=== PATIENT | female | born 1970 | race Caucasian/White ===

== ENCOUNTER → 2016-10-04 | Outpatient (CLI) | payer BC ==
--- NOTE | 2016-10-04 10:48 | MM ---
Reason for exam: additional evaluation requested from prior study. Last mammogram was performed 1 year and 8 months ago. History: Patient has history of other cancer at age 30. Physical Findings: Nurse did not find any significant physical abnormalities on exam. MG Diagnostic Mammo w CAD SANJAY Bilateral CC and MLO view(s) were taken. Prior study comparison: January 31, 2015, bilateral MG diagnostic mammo w CAD SANJAY. November 23, 2011, bilateral digital screening mammo w/CAD. The breast tissue is heterogeneously dense. This may lower the sensitivity of mammography. Finding: There are diffuse/scattered calcifications. Nodular density upper inner right breast is less conspicious. 6 month follow up recommended. These results were verbally communicated with the patient and result sheet given to the patient on 10/04/16. ASSESSMENT: Probably benign, BI-RAD 3 RECOMMENDATION: Follow-up diagnostic mammogram of the right breast in 6 months.
== END | disposition home or self-care (01) ==
LOC: RADMAMWWP 08:21
PROVIDERS: ATTEND Obstetrics & Gynecology
DX: R92.8 Other abnormal and inconclusive findings on diagnostic imaging of breast (principal)

== ENCOUNTER → 2017-04-30 | Outpatient (CLI) | payer BC ==
--- NOTE | 2017-05-01 08:56 | MM ---
Reason for exam: follow-up at short interval from prior study. Last mammogram was performed 7 months ago. History: Patient has history of other cancer at age 30. Physical Findings: Nurse did not find any significant physical abnormalities on exam. MG Diagnostic Mammo RT w CAD CC and MLO view(s) were taken of the right breast. Prior study comparison: October 04, 2016, bilateral MG diagnostic mammo w CAD SANJAY. January 31, 2015, bilateral MG diagnostic mammo w CAD SANJAY. The breast tissue is heterogeneously dense. This may lower the sensitivity of mammography. There is no discrete abnormality, previous nodule not identified. No significant new findings when compared with previous films. These results were verbally communicated with the patient and result sheet given to the patient on 04/30/17. ASSESSMENT: Benign, BI-RAD 2 RECOMMENDATION: Routine screening mammogram of both breasts in 6 months. Back on schedule.
== END | disposition home or self-care (01) ==
LOC: RADMAMWWP 09:09
PROVIDERS: ATTEND Obstetrics & Gynecology
DX: R92.8 Other abnormal and inconclusive findings on diagnostic imaging of breast (principal)

== ENCOUNTER → 2018-02-27 | Outpatient (CLI) | payer BC ==
--- NOTE | 2018-03-03 10:01 | MM ---
Reason for exam: screening (asymptomatic). Last mammogram was performed 10 months ago. History: Patient is postmenopausal and has history of other cancer at age 30. Physical Findings: A clinical breast exam by your physician is recommended on an annual basis and results should be correlated with mammographic findings. MG 3D Screening Mammo W/Cad Bilateral CC and MLO view(s) were taken. Prior study comparison: April 30, 2017, right breast MG diagnostic mammo RT w CAD. October 04, 2016, bilateral MG diagnostic mammo w CAD SANJAY. The breast tissue is heterogeneously dense. This may lower the sensitivity of mammography. Benign appearing diffuse bilateral calcifications. No suspicious abnormality. No significant changes when compared with prior studies. ASSESSMENT: Benign, BI-RAD 2 RECOMMENDATION: Routine screening mammogram of both breasts in 1 year.
== END | disposition home or self-care (01) ==
LOC: RADMAMWWP 08:06
PROVIDERS: ATTEND Obstetrics & Gynecology
DX: Z12.31 Encounter for screening mammogram for malignant neoplasm of breast (principal)
CPT/HCPCS: 77063; 77067

== ENCOUNTER 2018-04-07 19:37 | Emergency (ER) | payer BC ==
[2018-04-07 19:42] VITALS: RESP 18
[2018-04-07] MEDS ORDERED: FAMOTIDINE 20 MG/2 ML VIAL IV STA (20:48)
[2018-04-07] MEDS ORDERED: methylPREDNISolone SOD SUCCI 125 MG/2 ML VIAL IV STA (20:48)
--- NOTE | 2018-04-07 20:50 | ED ---
General Adult HPI - General Chief complaint: Allergic Reaction Stated complaint: allergic reaction Time Seen by Provider: 04/07/18 19:40 Source: EMS, RN notes reviewed Mode of arrival: EMS Limitations: no limitations - History of Present Illness Initial comments: This is a 47-year-old female presents emergency Department complaining that she was stung by 4 bees after she was done she became numb all over and was itching sites of the sting. Patient also states she became short of breath and when the ambulance arrived they gave her epinephrine which did seem to help. Patient states she is breathing better currently. Patient states her skin still itches. Patient denies any chest pain or palpitations. Patient states this has happened in the past. Patient states she does not have any EpiPen is because of the cost. - Related Data Home Medications Medication Instructions Recorded Confirmed Citalopram Hydrobromide [CeleXA] 20 mg PO DAILY 04/07/18 04/07/18 Lisinopril [Prinivil] 10 mg PO DAILY 04/07/18 04/07/18 Previous Rx's Medication Instructions Recorded EPINEPHrine (Auto Inject) [Epipen] 0.3 mg IM ONCE PRN #2 syringe 04/07/18 predniSONE 40 mg PO DAILY #8 tab 04/07/18 Allergies Allergy/AdvReac Type Severity Reaction Status Date / Time No Known Allergies Allergy Verified 04/07/18 20:50 Review of Systems ROS Statement: Those systems with pertinent positive or pertinent negative responses have been documented in the HPI. ROS Other: All systems not noted in ROS Statement are negative. Past Medical History Past Medical History: Cancer Additional Past Medical History / Comment(s): cervical cancer 1999- uterus scraped, currently evaluated for MS History of Any Multi-Drug Resistant Organisms: None Reported Past Surgical History: No Surgical Hx Reported Additional Past Surgical History / Comment(s): L wrist cyst removed 2005 Past Anesthesia/Blood Transfusion Reactions: No Reported Reaction Past Psychological History: No Psychological Hx Reported Smoking Status: Current every day smoker Past Alcohol Use History: Daily Past Drug Use History: Marijuana - Past Family History Mother Family Medical History: No Reported History General Exam - General Exam Comments Initial Comments: GENERAL: Patient is well-developed and well-nourished. Patient is nontoxic and well- hydrated and is in mild distress. ENT: Neck is soft and supple. No significant lymphadenopathy is noted. Oropharynx is clear. Moist mucous membranes. Neck has full range of motion without eliciting any pain. EYES: The sclera were anicteric and conjunctiva were pink and moist. Extraocular movements were intact and pupils were equal round and reactive to light. Eyelids were unremarkable. PULMONARY: Unlabored respirations. Good breath sounds bilaterally. No audible rales rhonchi or wheezing was noted. CARDIOVASCULAR: There is a regular rate and rhythm without any murmurs gallops or rubs. ABDOMEN: Soft and nontender with normal bowel sounds. No palpable organomegaly was noted. There is no palpable pulsatile mass. SKIN: Left forearm is swollen where the patient was stung. Patient also was stung on the inner left thigh but there is no real redness or swelling NEUROLOGIC: Patient is alert and oriented x3. Cranial nerves II through XII are grossly intact. Motor and sensory are also intact. Normal speech, volume and content. Symmetrical smile. MUSCULOSKELETAL: Normal extremities with adequate strength and full range of motion. No lower extremity swelling or edema. No calf tenderness. LYMPHATICS: No significant lymphadenopathy is noted PSYCHIATRIC: Normal psychiatric evaluation. Limitations: no limitations Course Vital Signs 04/07/18 19:38 Temperature 97.8 F Pulse Rate 84 Respiratory 18 Rate Blood Pressure 139/62 O2 Sat by Pulse 97 Oximetry Medical Decision Making - Medical Decision Making Patient received epinephrine in route. Patient received Solu-Medrol and Pepcid here she already took Benadryl at home orally. After patient received his medications are reevaluated she's having no difficulty no wheezing and her itching it subsided almost entirely. Patient should take Benadryl when necessary for itching. Patient denies any difficulty breathing patient should return to the emergency department immediately. Disposition Clinical Impression: Anaphylaxis Disposition: HOME SELF-CARE Condition: Good Instructions: Anaphylaxis (ED) Prescriptions: EPINEPHrine (Auto Inject) [Epipen] 0.3 mg IM ONCE PRN #2 syringe PRN Reason: Difficulty breathing predniSONE 40 mg PO DAILY #8 tab Is patient prescribed a controlled substance at d/c from ED?: No Referrals: Malik Amezcua DO [Primary Care Provider] - 1-2 days Time of Disposition: 21:46
[2018-04-07 22:10] VITALS: BP 132/62; PULSE 77; TEMP 97.6
== END 2018-04-07 22:10 | disposition home or self-care (01) ==
LOC: EC 19:37
DX: T78.2XXA Anaphylactic shock, unspecified, initial encounter (principal); Z85.41 Personal history of malignant neoplasm of cervix uteri; F17.200 Nicotine dependence, unspecified, uncomplicated; Z79.899 Other long term (current) drug therapy
CPT/HCPCS: 99284; 96374; 96375; J2930

== ENCOUNTER → 2020-03-16 | Outpatient (CLI) | payer BC, OTHER | END | disposition home or self-care (01) | LOC: LABWHC1 11:55 | PROVIDERS: ATTEND Family Medicine | DX: R06.00 Dyspnea, unspecified (principal) ==

== ENCOUNTER → 2021-01-12 | Outpatient (CLI) | payer OTHER ==
--- NOTE | 2021-01-16 14:05 | MM ---
Reason for exam: screening (asymptomatic). Last mammogram was performed 2 years and 10 months ago. History: Patient is postmenopausal and has history of other cancer at age 30. Physical Findings: A clinical breast exam by your physician is recommended on an annual basis and results should be correlated with mammographic findings. MG Screening Mammo w CAD Bilateral CC and MLO view(s) were taken. Prior study comparison: February 27, 2018, bilateral MG 3d screening mammo w/cad. April 30, 2017, right breast MG diagnostic mammo RT w CAD. The breast tissue is heterogeneously dense. This may lower the sensitivity of mammography. Diffuse and regional punctate calcifications are unchanged. No significant changes when compared with prior studies. ASSESSMENT: Benign, BI-RAD 2 RECOMMENDATION: Routine screening mammogram of both breasts in 1 year. Patient should continue monthly self breast exams. A negative report should not preclude additional follow up of suspicious palpable abnormalities.
== END | disposition home or self-care (01) ==
LOC: RADMAMWWP 15:56
PROVIDERS: ATTEND Obstetrics & Gynecology
DX: Z12.31 Encounter for screening mammogram for malignant neoplasm of breast (principal); Z78.0 Asymptomatic menopausal state
CPT/HCPCS: 77067

== ENCOUNTER 2021-02-16 16:10 | Emergency (ER) | payer OTHER ==
[2021-02-16 16:19] VITALS: BP 150/86; TEMP 97.8
[2021-02-16] MEDS ORDERED: LIDOCAINE 1% INJ 10MG/ML (20 ML MDV) SQ ONE (18:00)
[2021-02-16] MEDS ORDERED: DIPH,PERTUS(ACELL)TETVAC-LF 0.5 ML VIAL IM ONE (18:09)
--- NOTE | 2021-02-16 18:53 | ED ---
Wound/Laceration HPI - General Chief Complaint: Wound/Laceration Stated Complaint: Finger Laceration Time Seen by Provider: 02/16/21 17:55 Source: patient Mode of arrival: ambulatory Limitations: no limitations - History of Present Illness Initial Comments: 50-year-old female presents to the emergency department with a chief complaint of laceration. Said this occurred about 4 hours ago prior to arrival. States she punched a glass window and lacerated the palmar aspect of her right index finger. Patient reports tetanus is not up-to-date. Patient reports the pain is exacerbated with palpation to the region. She is not on blood thinners. Reports some bleeding which has since mostly resolved. States she is able to move her finger without any difficulties. - Related Data Home Medications Medication Instructions Recorded Confirmed Lisinopril [Prinivil] 10 mg PO DAILY 04/07/18 04/07/18 RX: Citalopram Hydrobromide 20 mg PO DAILY 04/07/18 04/07/18 [CeleXA] Previous Rx's Medication Instructions Recorded RX: EPINEPHrine (Auto Inject) 0.3 mg IM ONCE PRN #2 syringe 04/07/18 [Epipen] RX: predniSONE [Deltasone] 40 mg PO DAILY #8 tab 04/07/18 Allergies Allergy/AdvReac Type Severity Reaction Status Date / Time No Known Allergies Allergy Verified 02/16/21 16:14 Review of Systems ROS Statement: Those systems with pertinent positive or pertinent negative responses have been documented in the HPI. ROS Other: All systems not noted in ROS Statement are negative. Past Medical History Past Medical History: Cancer Additional Past Medical History / Comment(s): cervical cancer 1999- uterus scraped, currently evaluated for MS History of Any Multi-Drug Resistant Organisms: None Reported Past Surgical History: No Surgical Hx Reported Additional Past Surgical History / Comment(s): L wrist cyst removed 2005 Past Anesthesia/Blood Transfusion Reactions: No Reported Reaction Past Psychological History: Anxiety Smoking Status: Current every day smoker Past Alcohol Use History: Daily Past Drug Use History: Marijuana - Past Family History Mother Family Medical History: No Reported History General Exam Limitations: no limitations General appearance: alert, in no apparent distress Head exam: Present: atraumatic, normocephalic, normal inspection Eye exam: Present: normal appearance, PERRL, EOMI Pupils: Present: normal accommodation ENT exam: Present: normal exam, normal oropharynx, mucous membranes moist, TM's normal bilaterally, normal external ear exam Neck exam: Present: normal inspection, full ROM. Absent: tenderness Respiratory exam: Present: normal lung sounds bilaterally. Absent: respiratory distress, wheezes, rales, rhonchi, stridor, chest wall tenderness, accessory muscle use Cardiovascular Exam: Present: regular rate, normal rhythm, normal heart sounds. Absent: systolic murmur Extremities exam: Present: full ROM, tenderness (Tenderness at lacerated site), normal capillary refill. Absent: normal inspection (Chris laceration on the distal aspect of the right second finger), pedal edema, joint swelling, calf tenderness Back exam: Present: normal inspection, full ROM. Absent: tenderness, CVA tenderness (R), CVA tenderness (L) Neurological exam: Present: alert, oriented X3, normal gait Psychiatric exam: Present: normal affect, normal mood Skin exam: Present: warm, dry, intact, normal color Course Vital Signs 02/16/21 16:15 Temperature 97.8 F Pulse Rate 127 H Respiratory 18 Rate Blood Pressure 150/86 O2 Sat by Pulse 97 Oximetry Procedures - Laceration Laceration #1 Consent Obtained: verbal consent Indication: laceration Site: upper extremity (Right second digit) Size (cm): 2 Description: linear, clean Depth: simple, single layer Sedation/Analgesia: none Anesthetic Used: lidocaine 1% Anesthesia Technique: nerve block (Digital block) Amount (mls): 5 Pre-repair: irrigated extensively, deep structures intact Type of Sutures: nylon Size of Sutures: 4-0 Number of Sutures: 7 Technique: simple, interrupted Patient Tolerated Procedure: well, no complications - Nerve Block Consent Obtained: verbal consent Local Anesthetic Used: Lidocaine 1% Amount of anesthesia used: 5 Side: right Nerve Blocks: digital Procedure Successful: Yes Complications: none Patient Tolerated Procedure: well, no complications Medical Decision Making - Medical Decision Making 50-year-old female presents to the emergency department with a chief complaint laceration. Patient has a laceration distal and right index digit. This was thoroughly irrigated with normal saline and Betadine. Tetanus was updated. Laceration site was repaired with 7 sutures. Patient tolerated procedure well. I did offer x-rays of the finger, she declined.. Digital block performed. Patient vised return for suture removal. Wound care instructions discussed. Case discussed with Dr. Abreu. Disposition Clinical Impression: Laceration Disposition: HOME SELF-CARE Condition: Stable Instructions (If sedation given, give patient instructions): Care For Your Stitches (DC), Laceration (DC) Additional Instructions: Please return to the emergency room in 8-10 days to have sutures removed. Please watch for any signs of infection which may include increased pain, swelling, redness, fever or chills. Please return to emergency room for any signs of infection do occur. Please use clean soap and water over the area to prevent scabbing over your stitches. Please leave wound covered for the first 24-48 hours and then leave wound open to air. Please return to the emergency room for any other concerns. Is patient prescribed a controlled substance at d/c from ED?: No Referrals: Landon Maldonado Jr, DO [Primary Care Provider] - 1-2 days Time of Disposition: 18:53
[2021-02-16 19:14] VITALS: PULSE 95; RESP 16
== END 2021-02-16 19:14 | disposition home or self-care (01) ==
LOC: EC 16:10
DX: S61.210A Laceration without foreign body of right index finger without damage to nail, initial encounter (principal); F41.9 Anxiety disorder, unspecified; F17.200 Nicotine dependence, unspecified, uncomplicated; F12.90 Cannabis use, unspecified, uncomplicated; Z85.41 Personal history of malignant neoplasm of cervix uteri; W25.XXXA Contact with sharp glass, initial encounter
CPT/HCPCS: 90715; 99282; 90471; 12001; J2001

== ENCOUNTER 2021-06-06 13:06 | Emergency (ER) | payer OTHER ==
[2021-06-06 13:13] VITALS: BP 152/76; RESP 20; TEMP 98.1
--- NOTE | 2021-06-06 14:10 | ED ---
Lower Extremity Injury HPI - General Chief Complaint: Extremity Injury, Lower Stated Complaint: lt foot injury Time Seen by Provider: 06/06/21 13:30 Source: patient Mode of arrival: wheelchair Limitations: physical limitation - History of Present Illness Initial Comments: Patient is a 50-year-old female presenting to the emergency Department with complaints of left foot pain over the past 2 days. She states she's had fractures and her left foot in the past about 5 years ago. She woke up in the low night 2 nights ago, went to step down on her left foot and felt a crack and a pop. She's been having swelling and increased pain ever since then. She describes it as on the lateral aspect of her left foot, does shoot up the back of her leg sometimes. She denies any further complaints at this time. - Related Data Home Medications Medication Instructions Recorded Confirmed Citalopram Hydrobromide [CeleXA] 20 mg PO DAILY 04/07/18 04/07/18 Lisinopril [Prinivil] 10 mg PO DAILY 04/07/18 04/07/18 Previous Rx's Medication Instructions Recorded EPINEPHrine (Auto Inject) [Epipen] 0.3 mg IM ONCE PRN #2 syringe 04/07/18 predniSONE [Deltasone] 40 mg PO DAILY #8 tab 04/07/18 Allergies Allergy/AdvReac Type Severity Reaction Status Date / Time No Known Allergies Allergy Verified 02/16/21 16:14 Review of Systems ROS Statement: Those systems with pertinent positive or pertinent negative responses have been documented in the HPI. ROS Other: All systems not noted in ROS Statement are negative. Past Medical History Past Medical History: Cancer Additional Past Medical History / Comment(s): cervical cancer 1999- uterus scraped, currently evaluated for MS History of Any Multi-Drug Resistant Organisms: None Reported Past Surgical History: No Surgical Hx Reported Additional Past Surgical History / Comment(s): L wrist cyst removed 2005 Past Anesthesia/Blood Transfusion Reactions: No Reported Reaction Past Psychological History: Anxiety Smoking Status: Current every day smoker Past Alcohol Use History: Daily Past Drug Use History: Marijuana - Past Family History Mother Family Medical History: No Reported History General Exam - General Exam Comments Initial Comments: GENERAL: Patient is well-developed and well-nourished. Patient is nontoxic and in no acute distress. HEAD: Atraumatic, normocephalic. EYES: Pupils equal round and reactive to light, extraocular movements intact, sclera anicteric, conjunctiva are normal. Eyelids were unremarkable. ENT: Moist mucous membranes. NECK: Normal range of motion, supple without lymphadenopathy or JVD. LUNGS: Unlabored respirations. Breath sounds clear to auscultation bilaterally and equal. No wheezes rales or rhonchi. HEART: Regular rate and rhythm without murmurs, rubs or gallops. MUSCULOSKELETAL: Patient is tender along the lateral aspect of her left foot, she does have some mild to moderate swelling present, no obvious deformity or erythema. No clubbing or cyanosis. NEUROLOGICAL: Patient is alert and oriented x 3. SKIN: Warm, Dry, normal turgor, no rashes or lesions noted. Limitations: physical limitation Course Vital Signs 06/06/21 13:09 Temperature 98.1 F Pulse Rate 106 H Respiratory 20 Rate Blood Pressure 152/76 O2 Sat by Pulse 98 Oximetry Medical Decision Making - Medical Decision Making Patient is a 50-year-old female here with left foot pain after she stepped on it 2 nights ago. She does have history of previous left foot fractures, last was about 5 years ago. X-rays today show no acute fractures dislocations. I discussed with patient this is most likely a sprain. Recommended Forrest wrap for compression, ice and ibuprofen for any discomfort. If symptoms persist she can follow up with her doctor. She is agreeable to this and is stable for discharge. Disposition Clinical Impression: Left foot pain Disposition: HOME SELF-CARE Condition: Stable Instructions (If sedation given, give patient instructions): Foot Sprain (ED) Additional Instructions: Please return to the Emergency Department if symptoms worsen or any other concerns. Recommended Forrest wrap for support, ice, ibuprofen. If symptoms persist without improvement, follow up with your doctor. Is patient prescribed a controlled substance at d/c from ED?: No Referrals: Landon Maldonado Jr, [Primary Care Provider] - 1-2 days Time of Disposition: 14:52
--- NOTE | 2021-06-06 14:30 | XR ---
EXAMINATION TYPE: XR foot complete LT DATE OF EXAM: 06/06/2021 COMPARISON: None HISTORY: Pain x2 days, swelling TECHNIQUE: 3 view left foot FINDINGS: Joint spaces are preserved. Alignment is normal. No acute fracture or dislocation is eviden t. Soft tissues are normal. Achilles tendon calcaneal heel spur is present. Follow-up studies can be performed 7-10 days from acute trauma for continued pain. IMPRESSION: 1. No acute osseous abnormality left foot
[2021-06-06 15:02] VITALS: PULSE 88
== END 2021-06-06 15:02 | disposition home or self-care (01) ==
LOC: EC 13:06
DX: M79.672 Pain in left foot (principal); F41.9 Anxiety disorder, unspecified; F17.200 Nicotine dependence, unspecified, uncomplicated; F12.90 Cannabis use, unspecified, uncomplicated; Z79.899 Other long term (current) drug therapy
CPT/HCPCS: 99283

== ENCOUNTER → 2021-06-20 | Outpatient (CLI) | payer OTHER ==
--- NOTE | 2021-06-20 14:04 | CT ---
EXAMINATION TYPE: CT sinus wo con DATE OF EXAM: 06/20/2021 COMPARISON: CT brain December 31, 2015 HISTORY: sinusitis chronic per order. CT DLP: 638 mGycm. Automated Exposure Control for Dose Reduction was Utilized. TECHNIQUE: CT scan of the sinuses is performed without contrast, axial images are obtained, coronal r eformatted images are also reviewed. FINDINGS: Completely opacified left maxillary sinus on current study has abnormal tissue bulging into the nasal cavity axial image 54. Anterolateral wall shows sclerosis and thickening versus opposite r ight side . No bony destruction. Mild mucosal thickening inferior right maxillary sinus remains pres ent. Mild to minimal mucosal thickening anterior sphenoid sinuses bilaterally on current study. Mild to mo derate mucosal thickening posterior inferior aspect bilateral frontal sinuses aren't current study. M [id number] mucosal thickening involving anterior ethmoid sinuses bilaterally on current study. The ostiomeatal complex is patent on the right coronal image 37 and occluded on the left due to antra l left maxillary sinus with heterogeneous tissue extension. Nasal septum remains deviated to right of midline similar to prior. Visualized portion of mastoid air cells show no abnormal opacification. The globes are intact bilate rally. Visualized portion of brain parenchyma shows diffuse cerebral atrophy and chronic small vesse l ischemic change. IMPRESSION: Chronic paranasal sinus disease as detailed above. Left maxillary sinus findings signific antly progressed from 2016 study. Acute on chronic process cannot be excluded. Consider surgical samp ling to further evaluate.
== END | disposition home or self-care (01) ==
LOC: RADCTMAIN 13:27
PROVIDERS: ATTEND Otolaryngology
DX: J32.0 Chronic maxillary sinusitis (principal); J32.1 Chronic frontal sinusitis; J32.2 Chronic ethmoidal sinusitis; J32.3 Chronic sphenoidal sinusitis
CPT/HCPCS: 70486

== ENCOUNTER → 2021-07-13 | Outpatient (CLI) | payer OTHER ==
--- NOTE | 2021-07-13 15:29 | NM ---
EXAMINATION TYPE: NM bone/joint limited DATE OF EXAM: 07/13/2021 COMPARISON: Left foot x-ray June 06, 2021 HISTORY: Injury 6 weeks ago with persistent pain. History of cervical cancer. TECHNIQUE: After the intravenous administration of 21.8 mCi Tc 99m MDP. Images acquired 3 hours pos t injection. Multiple views of bilateral ankles and feet are submitted. Whole body images in anterio r and posterior projection also acquired. Findings: There is no abnormal uptake within the visualized osseous structures to suggest metastatic disease to the bone. Focus of increased uptake lower pole level right kidney of uncertain etiology possible dil ated calyx. Mild uptake bilateral knee joints presumed product of degenerative change. Dedicated images of the bilateral ankles and feet show increased radiotracer uptake lateral forefoot and hindfoot level corresponding to nondisplaced acute or now subacute comminuted fracture through th e cuboid bone now seen in retrospect on comparison plain films. IMPRESSION: As above.
== END | disposition home or self-care (01) ==
LOC: RADNMMAIN 11:02
PROVIDERS: ATTEND Family Medicine
DX: Z85.41 Personal history of malignant neoplasm of cervix uteri (principal)
CPT/HCPCS: 78300; A9503

== ENCOUNTER → 2022-02-09 | Outpatient (CLI) | payer OTHER ==
--- NOTE | 2022-02-10 03:22 | MR ---
EXAMINATION TYPE: MR lumbar spine wo/w con DATE OF EXAM: 02/09/2022 COMPARISON: None HISTORY: Low back pain into mike lower extremities CONTRAST: Standard multiplanar, multisequence MRI departmental protocol images were obtained without contrast a nd with 5 mL intravenous Gadavist gadolinium contrast. The lumbar vertebrae have normal alignment. Disc spaces are fairly normal. No compression fracture. N o evidence of any significant posterior lumbar disc herniation. There is developmentally adequate spi nal canal. The neural foramina are fairly well maintained. There is no lumbar paraspinal mass. Sacroi liac joints are intact. No evidence of a mass. There is mild anterior disc herniation at L3-4. There is mild right-sided lateral posterior L3-4 disc bulging without significant impingement on the neural foramen. IMPRESSION: Posterior lateral right side L3-4 disc bulge. No spinal stenosis. No fracture.
== END | disposition home or self-care (01) ==
LOC: RADMRIMAIN 09:49
PROVIDERS: ATTEND Physical Medicine & Rehabilitation
DX: M51.26 Other intervertebral disc displacement, lumbar region (principal)
CPT/HCPCS: 72158; A9585

== ENCOUNTER → 2023-04-25 | Outpatient (CLI) | payer OTHER ==
[2023-04-25 09:09] VITALS: BP 166/90; PULSE 87; RESP 15
--- NOTE | 2023-04-25 13:24 | P.PAINPG ---
PQRS Measure Charge Sheet Comment: HISTORY OF PRESENT ILLNESS: 52 yr old female as a referral from Dr Salazar presents today w severe and chronic LBP secondary to DDD, spondylosis and facet arthropathy without myelopathy for evaluation. Pt states pain level is provoked at 6/10 in intensity, constant, localized in the lower lumbar spine, sharp in character w shooting pain towards the BLEs. Pain is provoked by over activity. Pain is alleviated by heat, medications (Tyl, Ibu), topical, chiropractic treatments in 2020, repositioning and rest. Oswestry axial pain score at 24. PMH: OA, Cervical CA (1999), Anxiety PSH: L Wrist Cystectomy (2005) SH: Daily tobacco use, No ETOH abuse, Cannabis use FH: Mo- No Reported History All: See list Meds: See list REVIEW OF ORGAN SYSTEMS: CONSTITUTIONAL: No fevers or chills. No recent weight loss. NEUROLOGICAL: + numbness and tingling along the distal e xtremities. No seizure disorders or headaches. MUSCULOSKELETAL: + pain PSYCHIATRIC: Denies current depression or suicidal thoughts. Physical Examinations : Constitutional : Cooperative , not in acute distress . Neurologic : Cranial nerve II to XII intact. No focal neurological deficits. Psychiatric : alert & oriented x 3. Matching mood & appropriate affect. Judgment & insight intact. Musculoskeletal : Cervical Spine Motor strength in the deltoid and biceps: Normal right side. Normal Left side Motor strength biceps and the wrist extensors: Normal right side . Normal left side Motor strength in the triceps muscle: Normal right side. Normal left side Deep tendon reflexes: Normal at the biceps. Normal at Brachioradialis. Normal at triceps Vertebral body tenderness to deep palpation over Cervical facet loading test: positive bilaterally Spurling test: positive bilaterally Neck distraction test: positive bilaterally Minerva sign: positive bilaterally Lumbar spine Motor strength lower extremities ,thigh and legs 5/5 Right side , 5/5 Left side Deep tendon reflexes : Normal Knee Jerk. Normal Ankle Jerk Vertebral body tenderness over Iniguez Test positive Lumbar facet Loading Test: positive Right / positive Left Range of motion of the lumbar spine Flexion 30 degrees, extension 10 degrees Straight Leg Raise test: Left/ Right positive at degree Starr test: positive right / positive left. Severe tenderness over the Sacroiliac joint on the Right / Left sides Gaenslen test: positive bilaterally Seated flexion test: positive bilaterally. Sacral spine : Severe tenderness over the Sacroiliac joint: right side / left side Range of motion: Flexion of the lumbar spine <60 degrees Range of motion: Extension of the lumbar spine <20 degrees Gaenslen's Test positive Albert's Test positive Starr test: positive right side / left side Thigh Thrust Test Sacral Thrust Test Imaging: MRI non contrast of the lumbar spine from January 2022 reviewed Assessment/ Plan : Lumbar DDD Recommendation of PT x 6 wks re: M51.36 January follow up in 6 wks for a re evaluation. All questions answered. I have spent greater than 30 minutes on patient care today. Dr Hurst was available by phone for the evaluation of this patient. The time was used to review the medical records including relevant urine studies and Prescription history (MAPs), review of the available imaging, evaluation and examination of the patient, coordination of care with the medical staff and if applicable referring physicians, as well as creation of the medical record - Pain Location Bilateral Lower Back Non-Pharmacological Interventions: Chiropractic Treatment, Heat Pharmacological Interventions: PRN Medication, Scheduled Medication, Topical Medication PQRS Narrative: Smoking Status Current every day smoker Home Medications: Ambulatory Orders Citalopram Hydrobromide [CeleXA] 20 mg PO DAILY 04/07/18 EPINEPHrine (Auto Inject) [Epipen] 0.3 mg IM ONCE PRN #2 syringe 04/07/18 lisinopriL [Prinivil] 10 mg PO DAILY 04/07/18 predniSONE [Deltasone] 40 mg PO DAILY #8 tab 04/07/18 Controlled Substance Measures - Controlled Substance Measures Is patient prescribed a controlled substance at discharge?: No
== END ==
LOC: PNWHC3 07:28
PROVIDERS: ATTEND Specialist
DX: M51.36 Other intervertebral disc degeneration, lumbar region (principal); M47.816 Spondylosis without myelopathy or radiculopathy, lumbar region; M19.90 Unspecified osteoarthritis, unspecified site; F17.200 Nicotine dependence, unspecified, uncomplicated; F41.9 Anxiety disorder, unspecified; Z85.41 Personal history of malignant neoplasm of cervix uteri
CPT/HCPCS: 99211

== ENCOUNTER → 2023-06-06 | Outpatient (CLI) | payer OTHER ==
[2023-06-06 10:22] VITALS: BP 153/78; PULSE 106; RESP 16; TEMP 98.4
--- NOTE | 2023-06-06 13:26 | P.PAINPG ---
Objective - Vital Signs Vital signs: Vital Signs Temp 98.4 F 06/06/23 10:15 Pulse 106 H 06/06/23 10:15 Resp 16 06/06/23 10:15 BP 153/78 06/06/23 10:15 Pulse Ox 96 06/06/23 10:15 FiO2 PQRS Measure Charge Sheet Mode of Arrival: Ambulatory Comment: HISTORY OF PRESENT ILLNESS: 52 yr old female presents today w severe and chronic LBP secondary to DDD, spondylosis and facet arthropathy without myelopathy for evaluation. Pt states pain level is provoked at 6/10 in intensity, constant, localized in the lower lumbar spine, sharp in character w shooting pain towards the BLEs. Pain is provoked by over activity. Pain is alleviated by PT semi weeky x 6 wks which she is currently in, heat, medications, topical, chiropractic treatments in 2020, repositioning and rest. Oswestry axial pain score at 25. Interventional procedures include DENIES Medications include MS ER, Tyl, Ibu REVIEW OF ORGAN SYSTEMS: CONSTITUTIONAL: No fevers or chills. No recent weight loss. NEUROLOGICAL: + numbness and tingling along the distal extremities. No seizure disorders or headaches. MUSCULOSKELETAL: + pain PSYCHIATRIC: Denies current depression or suicidal thoughts. Physical Examinations : Constitutional : Cooperative , not in acute distress . Neurologic : Cranial nerve II to XII intact. No focal neurological deficits. Psychiatric : alert & oriented x 3. Matching mood & appropriate affect. Judgment & insight intact. Musculoskeletal : Cervical Spine Motor strength in the deltoid and biceps: Normal right side. Normal Left side Motor strength biceps and the wrist extensors: Normal right side . Normal left side Motor strength in the triceps muscle: Normal right side. Normal left side Deep tendon reflexes: Normal at the biceps. Normal at Brachioradialis. Normal at triceps Vertebral body tenderness to deep palpation over Cervical facet loading test: positive bilaterally Spurling test: positive bilaterally Neck distraction test: positive b ilaterally Minerva sign: positive bilaterally Lumbar spine Motor strength lower extremities ,thigh and legs 5/5 Right side , 5/5 Left side Deep tendon reflexes : Normal Knee Jerk. Normal Ankle Jerk Vertebral body tenderness over L3 Iniguez Test positive Lumbar facet Loading Test: positive Right / positive Left Range of motion of the lumbar spine Flexion 30 degrees, extension 10 degrees Straight Leg Raise test: Left/ Right positive at degree Starr test: positive right / positive left. Severe tenderness over the Sacroiliac joint on the Right / Left sides Gaenslen test: positive bilaterally Seated flexion test: positive bilaterally. Sacral spine : Severe tenderness over the Sacroiliac joint: right side / left side Range of motion: Flexion of the lumbar spine <60 degrees Range of motion: Extension of the lumbar spine <20 degrees Gaenslen's Test positive Albert's Test positive Starr test: positive right side / left side Thigh Thrust Test Sacral Thrust Test Imaging: MRI non contrast of the lumbar spine from January 2022 reviewed Assessment/ Plan : Lumbar DDD Recommendation of ALBA L3-L4. May need a series of injections for optimal pain relief. Risks, benefits of procedure discussed and pt verbalized understanding. Protocol for discontinuation/ continuation of medications melissa procedure discussed. All questions answered. I have spent greater than 30 minutes on patient care today. Dr Hurst was available by phone for the evaluation of this patient. The time was used to review the medical records including relevant urine studies and Prescription history (MAPs), review of the available imaging, evaluation and examination of the patient, coordination of care with the medical staff and if applicable referring physicians, as well as creation of the medical record - Pain Location Bilateral Lower Back Non-Pharmacological Interventions: Heat, Ice, Inactivity, Physical Therapy Pharmacological Interventions: Scheduled Medication, Topical Medication PQRS Narrative: Smoking Status Current every day smoker Blood Pressure 153/78 Pain Intensity [Bilateral 8 Lower Back] Scale Used Numeric (1 - 10) Hx Alcohol Use (MH) No Home Medications: Ambulatory Orders Citalopram Hydrobromide [CeleXA] 20 mg PO DAILY 04/07/18 EPINEPHrine (Auto Inject) [Epipen] 0.3 mg IM ONCE PRN #2 syringe 04/07/18 lisinopriL [Prinivil] 10 mg PO DAILY 04/07/18 predniSONE [Deltasone] 40 mg PO DAILY #8 tab 04/07/18 Controlled Substance Measures - Controlled Substance Measures Is patient prescribed a controlled substance at discharge?: No
== END ==
LOC: PNWHC3 10:04
PROVIDERS: ATTEND Specialist
DX: M51.36 Other intervertebral disc degeneration, lumbar region (principal); F17.200 Nicotine dependence, unspecified, uncomplicated
CPT/HCPCS: 99211

== ENCOUNTER → 2023-07-22 | Outpatient (CLI) | payer OTHER ==
[2023-07-22 13:21] VITALS: BP 156/85; PULSE 108; RESP 16; TEMP 98.7
--- NOTE | 2023-07-22 14:22 | P.PAINPG ---
PQRS Measure Charge Sheet Comment: HISTORY OF PRESENT ILLNESS: 52 yr old female presents today w severe and chronic LBP secondary to DDD, spondylosis and facet arthropathy without myelopathy for evaluation s/p ALBA L3- L4 #1. Pt states she experienced 75 % pain relief x 2-3 wks s/p procedure. Pt states pain level is provoked at 4/10 in intensity, constant, localized in the lower lumbar spine, sharp in character w shooting pain towards the BLEs. Pain is provoked by over activity. Pain is alleviated by PT semi weeky x 6 wks which she is currently in, heat, medications, topical, chiropractic treatments in 2020, repositioning and rest. Oswestry axial pain score at 25. Pt called clinic stating she was prescribed Morphine Sulfate by Dr Salazar but it was discontinued as she tested negative 2 times for it. She is requesting the provider gives her Morphine Sulfate at her appt in 3 days. Discussed cannabis use. Pt stated she will not quit cannabis and will continue to come to this clinic for injections only. Interventional procedures include ALBA L3-L4 #1 Medications include MS ER, Tyl, Ibu REVIEW OF ORGAN SYSTEMS: CONSTITUTIONAL: No fevers or chills. No recent weight loss. NEUROLOGICAL: + numbness and tingling along the distal extremities. No seizure disorders or headaches. MUSCULOSKELETAL: + pain PSYCHIATRIC: Denies current depression or suicidal thoughts. Physical Examinations : Constitutional : Cooperative , not in acute distress . Neurologic : Cranial nerve II to XII intact. No focal neurological deficits. Psychiatric : alert & oriented x 3. Matching mood & appropriate affect. Judgment & insight intact. Musculoskeletal : Cervical Spine Motor strength in the deltoid and biceps: Normal right side. Normal Left side Motor strength biceps and the wrist extensors: Normal right side . Normal left side Motor strength in the triceps muscle: Normal right side. Normal left side Deep tendon reflexes: Normal at the biceps. Normal at Brachioradialis. Normal at triceps Vertebral body tenderness to deep palpation over Cervical facet loading test: positive bilaterally Spurling test: positive bilaterally Neck distraction test: positive bilaterally Minerva sign: positive bilaterally Lumbar spine Motor strength lower extremities ,thigh and legs 5/5 Right side , 5/5 Left side Deep tendon reflexes : Normal Knee Jerk. Normal Ankle Jerk Vertebral body tenderness Iniguez Test positive Lumbar facet Loading Test: positive Right / positive Left Range of motion of the lumbar spine Flexion 30 degrees, extension 10 degrees Straight Leg Raise test: Left/ Right positive at degree Starr test: positive right / positive left. Severe tenderness over the Sacroiliac joint on the Right / Left sides Gaenslen test: positive bilaterally Seated flexion test: positive bilaterally. Sacral spine : Severe tenderness over the Sacroiliac joint: right side / left side Range of motion: Flexion of the lumbar spine <60 degrees Range of motion: Extension of the lumbar spine <20 degrees Gaenslen's Test positive Albert's Test positive Starr test: positive right side / left side Thigh Thrust Test Sacral Thrust Test Imaging: MRI non contrast of the lumbar spine from January 2022 reviewed Assessment/ Plan : Lumbar DDD Will manage residual pain and may RTC on an as needed basis. All questions answered. I have spent greater than 30 minutes on patient care today. Dr Hurst was available by phone for the evaluation of this patient. The time was used to review the medical records including relevant urine studies and Prescription history (MAPs), review of the available imaging, evaluation and examination of the patient, coordination of care with the medical staff and if applicable referring physicians, as well as creation of the medical record PQRS Narrative: Smoking Status Current every day smoker Hx Alcohol Use (MH) No Home Medications: Ambulatory Orders Citalopram Hydrobromide [CeleXA] 20 mg PO DAILY 04/07/18 EPINEPHrine (Auto Inject) [Epipen] 0.3 mg IM ONCE PRN #2 syringe 04/07/18 lisinopriL [Prinivil] 10 mg PO QAM 04/07/18 predniSONE [Deltasone] 40 mg PO DAILY #8 tab 04/07/18 DULoxetine HCL [Cymbalta] 60 mg PO QAM 06/20/23 Lurasidone [Latuda] 40 mg PO HS 06/20/23 Morphine Sulfate Ir [MSIR] 15 mg PO QID 06/20/23 Controlled Substance Measures - Controlled Substance Measures Is patient prescribed a controlled substance at discharge?: No
== END ==
LOC: PNWHC3 10:40
PROVIDERS: ATTEND Specialist
DX: M47.816 Spondylosis without myelopathy or radiculopathy, lumbar region (principal); M51.36 Other intervertebral disc degeneration, lumbar region; F17.200 Nicotine dependence, unspecified, uncomplicated; Z91.030 Bee allergy status; Z88.8 Allergy status to other drugs, medicaments and biological substances
CPT/HCPCS: 99211

== ENCOUNTER → 2023-08-27 | Outpatient (CLI) | payer OTHER ==
--- NOTE | 2023-08-28 09:49 | MM ---
Reason for Exam: Screening (asymptomatic). Last mammogram was performed 1 year(s) and 6 month(s) ago. Patient History: Menarche at age 16. First Full-Term at age 17. Postmenopausal. Risk Values: Margie 5 year model risk: 0.7%. NCI Lifetime model risk: 5.8%. Prior Study Comparison: 02/27/2018 Bilateral Screening Mammogram, [facility]. 01/12/2021 Bilateral Screening Mammogram, [facility]. 02/19/2022 Bilateral MG screening mammo w CAD, [facility]. Tissue Density: The breast tissue is heterogeneously dense. This may lower the sensitivity of mammography. Findings: Analyzed By CAD. Grouped calcifications right breast CC view lateral aspect of left breast upper posterior nipple line. No suspicious masses. Overall Assessment: Incomplete: need additional imaging evaluation, BI-RAD 0 Management: Diagnostic Mammogram of both breasts. [facility] will attempt to contact patient to return for supplemental views and ultrasound if indicated. Patient should continue monthly self-breast exams. A clinical breast exam by your physician is recommended on an annual basis. This exam should not preclude additional follow-up of suspicious palpable abnormalities. Note on Margie scores and lifetime risk: 1. A Margie score greater than 3% is considered moderate risk. If this is the case, consider specialist referral to assess eligibility for a risk reducing agent. 2. If overall lifetime risk for the development of breast cancer is 20% or higher, the patient may qualify for future screening with alternating mammogram and breast MRI. Electronically signed and approved by: Maninder Escobar DO
== END | disposition home or self-care (01) ==
LOC: RADMAMWWP 13:50
PROVIDERS: ATTEND Obstetrics & Gynecology
DX: Z12.31 Encounter for screening mammogram for malignant neoplasm of breast (principal); Z78.0 Asymptomatic menopausal state
CPT/HCPCS: 77063; 77067

== ENCOUNTER → 2023-09-03 | Outpatient (CLI) | payer OTHER ==
--- NOTE | 2023-09-03 18:49 | MM ---
Reason for Exam: Additional evaluation requested from abnormal screening. Last screening mammogram was performed less than 1 month ago. Patient History: Menarche at age 16. First Full-Term at age 17. Postmenopausal. Risk Values: Margie 5 year model risk: 0.7%. NCI Lifetime model risk: 5.8%. Prior Study Comparison: 02/19/2022 Bilateral MG screening mammo w CAD, [facility]. 08/27/2023 Bilateral MG 3D screening mammo w/cad, [facility]. Tissue Density: The breast tissue is heterogeneously dense. This may lower the sensitivity of mammography. Findings: Analyzed By CAD. Magnification views make the regional and diffuse amorphous calcifications appear less distinct. The more prominent appearance of the microcalcifications on the screening exam is suspected to be due to the synthesized technique of the 3-D mammogram. Recommend 6 month follow-up to ensure a stable appearance. Overall Assessment: Probably benign, BI-RAD 3 Management: Diagnostic Mammogram of both breasts in 6 months. . Results were given to the patient verbally at the time of exam. Patient should continue monthly self-breast exams. A clinical breast exam by your physician is recommended on an annual basis. This exam should not preclude additional follow-up of suspicious palpable abnormalities. Note on Margie scores and lifetime risk: 1. A Margie score greater than 3% is considered moderate risk. If this is the case, consider specialist referral to assess eligibility for a risk reducing agent. 2. If overall lifetime risk for the development of breast cancer is 20% or higher, the patient may qualify for future screening with alternating mammogram and breast MRI. Electronically signed and approved by: Bekah Rock M.D. Radiologist
== END | disposition home or self-care (01) ==
LOC: RADMAMWWP 14:58
PROVIDERS: ATTEND Obstetrics & Gynecology
DX: R92.333 Mammographic heterogeneous density, bilateral breasts (principal); Z78.0 Asymptomatic menopausal state
CPT/HCPCS: 77066; G0279; 77062

== ENCOUNTER → 2023-09-18 | Outpatient (CLI) | payer OTHER ==
--- NOTE | 2023-09-18 14:07 | P.PAINPG ---
PQRS Measure Charge Sheet Comment: HISTORY OF PRESENT ILLNESS: A 52 yr old female presents today w severe and chronic LBP secondary to DDD, spondylosis and facet arthropathy without myelopathy for evaluation. Pt states pain level is provoked at 4/10 in intensity, constant, localized in the lower lumbar spine, predominantly axial, sharp in character w occasional shooting pain towards the BLEs. Pain is provoked by over activity. Pain is alleviated by PT x 4 wks in May 2023, heat, medications, topical, chiropractic treatments in 2020, repositioning and rest. Oswestry axial pain score at 25. Previously, pt called clinic stating she was prescribed Morphine Sulfate by Dr Salazar but it was discontinued as she tested negative 2 times for it. She is requesting the provider gives her Morphine Sulfate at her appt in 3 days. Discussed cannabis use. Pt stated she will not quit cannabis and will continue to come to this clinic for injections only. Interventional procedures include ALBA L3-L4 #1 Medications include MS ER, Tyl, Ibu REVIEW OF ORGAN SYSTEMS: CONSTITUTIONAL: No fevers or chills. No recent weight loss. NEUROLOGICAL: + numbness and tingling along the distal extremities. No seizure disorders or headaches. MUSCULOSKELETAL: + pain PSYCHIATRIC: Denies current depression or suicidal thoughts. Physical Examinations : Constitutional : Cooperative , not in acute distress . Neurologic : Cranial nerve II to XII intact. No focal neurological deficits. Psychiatric : alert & oriented x 3. Matching mood & appropriate affect. Judgment & insight intact. Musculoskeletal : Cervical Spine Motor strength in the deltoid and biceps: Normal right side. Normal Left side Motor strength biceps and the wrist extensors: Normal right side . Normal left side Motor strength in the triceps muscle: Normal right side. Normal left side Deep tendon reflexes: Normal at the biceps. Normal at Brachioradialis. Normal at triceps Vertebral body tenderness to deep palpation over Cervical facet loading test: positive bilaterally Spurling test: positive bilaterally Neck distraction test: positive bilaterally Minerva sign: positive bilaterally Lumbar spine Motor strength lower extremities ,thigh and legs 5/5 Right side , 5/5 Left side Deep tendon reflexes : Normal Knee Jerk. Normal Ankle Jerk Vertebral body tenderness Iniguez Test positive Lumbar facet Loading Test: positive Right / positive Left Range of motion of the lumbar spine Flexion 30 degrees, extension 10 degrees Straight Leg Raise test: Left/ Right positive at degree Starr test: positive right / positive left. Severe tenderness over the Sacroiliac joint on the Right / Left sides Gaenslen test: positive bilaterally Seated flexion test: positive bilaterally. Sacral spine : Severe tenderness over the Sacroiliac joint: right side / left side Range of motion: Flexion of the lumbar spine <60 degrees Range of motion: Extension of the lumbar spine <20 degrees Gaenslen's Test positive Albert's Test positive Starr test: positive right side / left side Thigh Thrust Test Sacral Thrust Test Imaging: MRI non contrast of the lumbar spine from January 2022 reviewed Assessment/ Plan : Lumbar DDD Recommendation of PT x 6 wks M51.36. RTC in 6 wks for a re evaluation. All questions answered. I have spent greater than 30 minutes on patient care today. Dr Hurst was available by phone for the evaluation of this patient. The time was used to review the medical records including relevant urine studies and Prescription history (MAPs), review of the available imaging, evaluation and examination of the patient, coordination of care with the medical staff and if applicable referring physicians, as well as creation of the medical record PQRS Narrative: Smoking Status Current every day smoker Hx Alcohol Use (MH) No Home Medications: Ambulatory Orders Citalopram Hydrobromide [CeleXA] 20 mg PO DAILY 04/07/18 EPINEPHrine (Auto Inject) [Epipen] 0.3 mg IM ONCE PRN #2 syringe 04/07/18 lisinopriL [Prinivil] 10 mg PO QAM 04/07/18 predniSONE [Deltasone] 40 mg PO DAILY #8 tab 04/07/18 DULoxetine HCL [Cymbalta] 60 mg PO QAM 06/20/23 Lurasidone [Latuda] 40 mg PO HS 06/20/23 Morphine Sulfate Ir [MSIR] 15 mg PO QID 06/20/23 Controlled Substance Measures - Controlled Substance Measures Is patient prescribed a controlled substance at discharge?: No
[2023-09-18 14:34] VITALS: BP 122/79; PULSE 99; RESP 16; TEMP 98.3
== END ==
LOC: PNWHC3 13:54
PROVIDERS: ATTEND Specialist
DX: M54.50 Low back pain, unspecified (principal); M51.36 Other intervertebral disc degeneration, lumbar region; F17.200 Nicotine dependence, unspecified, uncomplicated; Z91.030 Bee allergy status; Z88.8 Allergy status to other drugs, medicaments and biological substances
CPT/HCPCS: 99211

== ENCOUNTER → 2023-10-30 | Outpatient (CLI) | payer OTHER ==
--- NOTE | 2023-10-30 14:37 | P.PAINPG ---
PQRS Measure Charge Sheet Comment: HISTORY OF PRESENT ILLNESS: A 52 yr old female presents today w severe and chronic LBP x 5 yrs secondary to DDD, spondylosis and facet arthropathy without myelopathy for evaluation. Pt states pain level is provoked at 6/10 in intensity, constant, localized in the lower lumbar spine, predominantly axial, sharp in character w occasional shooting pain towards the BLEs. Pain is provoked by over activity. Pain is alleviated by PT x 4 wks which provokes pain and she is currently in, heat, medications, topical, chiropractic treatments in 2020, repositioning and rest. Oswestry axial pain score at 25. Previously, pt called clinic stating she was prescribed Morphine Sulfate by Dr Salazar but it was discontinued as she tested negative 2 times for it. She is requesting the provider gives her Morphine Sulfate at her appt in 3 days. Discussed cannabis use. Pt stated she will not quit cannabis and will continue to come to this clinic for injections only. Interventional procedures include ALBA L3-L4 #1 Medications include MS ER, Tyl, Ibu REVIEW OF ORGAN SYSTEMS: CONSTITUTIONAL: No fevers or chills. No recent weight loss. NEUROLOGICAL: + numbness and tingling along the distal extremities. No seizure disorders or headaches. MUSCULOSKELETAL: + pain PSYCHIATRIC: Denies current depression or suicidal thoughts. Physical Examinations : Constitutional : Cooperative , not in acute distress . Neurologic : Cranial nerve II to XII intact. No focal neurological deficits. Psychiatric : alert & oriented x 3. Matching mood & appropriate affect. Judgment & insight intact. Musculoskeletal : Cervical Spine Motor strength in the deltoid and biceps: Normal right side. Normal Left side Motor strength biceps and the wrist extensors: Normal right side . Normal left side Motor strength in the triceps muscle: Normal right side. Normal left side Deep tendon reflexes: Normal at the biceps. Normal at Brachioradialis. Normal at triceps Vertebral body tenderness to deep palpation over Cervical facet loading test: positive bilaterally Spurling test: positive bilaterally Neck distraction test: positive bilaterally Minerva sign: positive bilaterally Lumbar spine Motor strength lower extremities ,thigh and legs 5/5 Right side , 5/5 Left side Deep tendon reflexes : Normal Knee Jerk. Normal Ankle Jerk Vertebral body tenderness over L3 Iniguez Test positive over BL L3-L4, R> L Lumbar facet Loading Test: positive Right / positive Left Range of motion of the lumbar spine Flexion 30 degrees, extension 10 degrees Straight Leg Raise test: Left/ Right positive at degree Starr test: positive right / positive left. Severe tenderness over the Sacroiliac joint on the Right / Left sides Gaenslen test: positive bilaterally Seated flexion test: positive bilaterally. Sacral spine : Severe tenderness over the Sacroiliac joint: right side / left side Range of motion: Flexion of the lumbar spine <60 degrees Range of motion: Extension of the lumbar spine <20 degrees Gaenslen's Test positive Albert's Test positive Starr test: positive right side / left side Thigh Thrust Test Sacral Thrust Test Imaging: MRI non contrast of the lumbar spine from 02/09/22 reviewed Assessment/ Plan : Lumbar DDD Recommendation of ALBA L3-L4 #1. May need a series of injections for optimal pain relief. Risks, benefits of procedure discussed and patient verbalized understanding. Protocol for discontinuation/continuation of medications surrounding procedure discussed. All questions answered. I have spent greater than 30 minutes on patient care today. Dr Hurst was available by phone for the evaluation of this patient. The time was used to review the medical records including relevant urine studies and Prescription history (MAPs), review of the available imaging, evaluation and examination of the patient, coordination of care with the medical staff and if applicable referring physicians, as well as creation of the medical record PQRS Narrative: Smoking Status Current every day smoker Hx Alcohol Use (MH) No Home Medications: Ambulatory Orders Citalopram Hydrobromide [CeleXA] 20 mg PO DAILY 04/07/18 EPINEPHrine (Auto Inject) [Epipen] 0.3 mg IM ONCE PRN #2 syringe 04/07/18 lisinopriL [Prinivil] 10 mg PO QAM 04/07/18 predniSONE [Deltasone] 40 mg PO DAILY #8 tab 04/07/18 DULoxetine HCL [Cymbalta] 60 mg PO QAM 06/20/23 Lurasidone [Latuda] 40 mg PO HS 06/20/23 Morphine Sulfate Ir [MSIR] 15 mg PO QID 06/20/23 Controlled Substance Measures - Controlled Substance Measures Is patient prescribed a controlled substance at discharge?: No
[2023-10-30 14:50] VITALS: BP 121/68; PULSE 86; RESP 15; TEMP 97.1
== END ==
LOC: PNWHC3 14:04
PROVIDERS: ATTEND Anesthesiology
DX: M51.36 Other intervertebral disc degeneration, lumbar region (principal); F17.200 Nicotine dependence, unspecified, uncomplicated; Z91.030 Bee allergy status; Z88.3 Allergy status to other anti-infective agents
CPT/HCPCS: 99211

== ENCOUNTER 2023-11-21 11:18 | Day surgery (SDC) | payer OTHER ==
[2023-11-19 11:07] VITALS: BMI 20.8
[~2023-11-21 11:18] MED LIST: LACTATED RINGERS 1,000 ML IV SCH
[2023-11-21 11:40] VITALS: RESP 16; TEMP 97.9
[2023-11-21] MEDS ORDERED: IOPAMIDOL M200 10 ML VIAL ONE (12:31)
[2023-11-21] MEDS ORDERED: methylPREDNISolone ACETATE 80 MG/ML 1 ML VIAL ONE (12:31)
--- NOTE | 2023-11-21 12:37 | P.PCN ---
Date of Procedure: 11/21/23 Procedure(s) Performed: PREOPERATIVE DIAGNOSIS: 1- Lumbar Degenerative Disc Diseases 2-Lumbar Radiculopathy. POSTOPERATIVE DIAGNOSIS: 1-lumbar degenerative disc disease. 2-lumbar Radiculopathy. PROCEDURE 1. Lumbar epidural steroid injection under fluoroscopic guidance at the L3-4 level. (Fluoroscopy imaging was available in radiology department) 2. Lumbar epidurogram. ANESTHESIA: Lidocaine 1% 3 and then only. EBL: Minimal PROCEDURE INDICATION: The patient with low back pain and radiculitis symptoms unresponsive to conservative treatment. Fluoroscopy was used to optimize visualization of the needle placement and to maximize safety. PROCEDURE DESCRIPTION / TECHNIQUE: The patient was seen and identified in the preoperative area. Risks, benefits, complications including but not limited to infections ,bleeding ,allergic reaction to the medications ,nerve damage and not complete pain releife , and alternatives were discussed with the patient. The patient agreed to proceed with the procedure and signed the consent, and vital signs were stable. Patient was taken to the OR and time out was completed. The patient was placed in the prone position on procedure table and a pillow was placed under the abdomen to reduce lumbar lordosis. The lumbosacral area was prepped and draped in the usual sterile fashion.ere closely monitored during the procedure. Vital signs was monitered during the entire procedure. Using anterior-posterior fluoroscopy, the L3-4 interlaminar space was ident ified and the skin over this site was marked and then infiltrated with 1% lidocaine subcutaneously. Subsequently, a 20-gauge Tuohy epidural needle was inserted and advanced toward the epidural space using the ``Loss of resistance technique and guided by AP and lateral fluoroscopy. The correct needle position in the epidural space was verified with the injection of 2 mL of the water soluble contrast dye Isovue 200 contrast and observing an excellent epidurogram with the epidural spread of the dye, after negative aspiration for blood and CSF and in the absence of paresthesias. Again after negative aspiration, a 6 ml mixture containing 80 mg of Depo-medrol ( Preservetive Free ), and 2 ml of preservative free Normal Saline, and 2 ml of preservative free lidocaine 1% solution was injected and a washout of epidurogram was seen. Needle was withdrawn intact, skin was cleansed, and bandages were applied. COMPLICATIONS: None DISPOSITION / PLANS: The patient was placed in a supine position and transferred to the recovery area in a stable condition for observation. There was no evidence of lower extremity motor or sensory deficit after the procedure. Patient was discharged from the recovery room after meeting discharge criteria. Home discharge instructions were given to the patient by the staff. The patient was reexamined prior to discharge. The patient will schedule a follow up in the clinic in 2-4 weeks.
[2023-11-21 12:44] VITALS: BP 164/83; PULSE 86
--- NOTE | 2023-11-22 09:55 | FL ---
EXAMINATION TYPE: FL guided pain mgmt statistic DATE OF EXAM: 11/21/2023 FLUOROSCOPY Fluoroscopy time of 2 seconds was used during lumbar epidural steroid injection. 1 image/s document/ s the procedure. [id number] mGycm2 DAP
== END 2023-11-21 12:58 | disposition home or self-care (01) ==
LOC: ORPAIN 11:18
PROVIDERS: ATTEND Specialist
DX: M51.16 Intervertebral disc disorders with radiculopathy, lumbar region (principal); Z88.8 Allergy status to other drugs, medicaments and biological substances
CPT/HCPCS: 62323; J1040; Q9966

== ENCOUNTER → 2023-12-04 | Outpatient (CLI) | payer OTHER ==
--- NOTE | 2023-12-04 14:45 | P.PAINPG ---
PQRS Measure Charge Sheet Comment: HISTORY OF PRESENT ILLNESS: A 52 yr old female presents today w severe and chronic LBP x 5 yrs secondary to DDD, spondylosis and facet arthropathy without myelopathy for evaluation s/p ALBA L3-L4 #1. Pt states she experienced 75 % pain relief x 5 days s/p procedure. Pt states pain level is provoked at 6 /10 in intensity, constant, localized in the lumbar spine, predominantly axial, sharp in character w occasional shooting pain L & R of midline. Pain is provoked by over activity. Pain is alleviated by PT x 4 wks which provokes pain and she is currently in, heat, medications, topical, chiropractic treatments in 2020, repositioning and rest. Oswestry axial pain score at 23. Previously, pt called clinic stating she was prescribed Morphine Sulfate by Dr Salazar but it was discontinued as she tested negative 2 times for it. She is requesting the provider gives her Morphine Sulfate at her appt in 3 days. Discussed cannabis use. Pt stated she will not quit cannabis and will continue to come to this clinic for injections only. Interventional procedures include ALBA L3-L4 x2 Medications include MS ER, Tyl, Ibu REVIEW OF ORGAN SYSTEMS: CONSTITUTIONAL: No fevers or chills. No recent weight loss. NEUROLOGICAL: + numbness and tingling along the distal extremities. No seizure disorders or headaches. MUSCULOSKELETAL: + pain PSYCHIATRIC: Denies current depression or suicidal thoughts. Physical Examinations : Constitutional : Cooperative , not in acute distress . Neurologic : Cranial nerve II to XII intact. No focal neurological deficits. Psychiatric : alert & oriented x 3. Matching mood & appropriate affect. Judgment & insight intact. Musculoskeletal : Cervical Spine Motor strength in the deltoid and biceps: Normal right side. Normal Left side Motor strength biceps and the wrist extensors: Normal right side . Normal left side Motor strength in the triceps muscle: Normal right side. Normal left side Deep tendon reflexes: Normal at the biceps. Normal at Brachioradialis. Normal at triceps Vertebral body tenderness to deep palpation over Cervical facet loading test: positive bilaterally Spurling test: positive bilaterally Neck distraction test: positive bilaterally Minerva sign: positive bilaterally Lumbar spine Motor strength lower extremities ,thigh and legs 5/5 Right side , 5/5 Left side Deep tendon reflexes : Normal Knee Jerk. Normal Ankle Jerk Vertebral body tenderness over L3 Iniguez Test positive over Taut bands w twitch response over BL L2-S1 R> L Lumbar facet Loading Test: positive Right / positive Left Range of motion of the lumbar spine Flexion 30 degrees, extension 10 degrees Straight Leg Raise test: Left/ Right positive at degree Starr test: positive right / positive left. Severe tenderness over the Sacroiliac joint on the Right / Left sides Gaenslen test: positive bilaterally Seated flexion test: positive bilaterally. Sacral spine : Severe tenderness over the Sacroiliac joint: right side / left side Range of motion: Flexion of the lumbar spine <60 degrees Range of motion: Extension of the lumbar spine <20 degrees Gaenslen's Test positive Albert's Test positive Starr test: positive right side / left side Thigh Thrust Test Sacral Thrust Test Imaging: MRI non contrast of the lumbar spine from 02/09/22 reviewed Assessment/ Plan : Lumbar DDD Recommendation of PT x 6 wks w traction/ decompression M51.36 & BL TPIs L2-S1 #1. May need a series of injections for optimal pain relief. Risks, benefits of procedure discussed and patient verbalized understanding. Protocol for discontinuation/continuation of medications surrounding procedure discussed. All questions answered. I have spent greater than 30 minutes on patient care today. Dr Hurst was available by phone for the evaluation of this patient. The time was used to review the medical records including relevant urine studies and Prescription history (MAPs), review of the available imaging, evaluation and examination of the patient, coordination of care with the medical staff and if applicable referring physicians, as well as creation of the medical record PQRS Narrative: Smoking Status Current every day smoker Hx Alcohol Use (MH) No Home Medications: Ambulatory Orders Citalopram Hydrobromide [CeleXA] 20 mg PO DAILY 04/07/18 EPINEPHrine (Auto Inject) [Epipen] 0.3 mg IM ONCE PRN #2 syringe 04/07/18 lisinopriL [Prinivil] 10 mg PO QAM 04/07/18 predniSONE [Deltasone] 40 mg PO DAILY #8 tab 04/07/18 DULoxetine HCL [Cymbalta] 60 mg PO QAM 06/20/23 Lurasidone [Latuda] 40 mg PO HS 06/20/23 Morphine Sulfate Ir [MSIR] 15 mg PO QID 06/20/23 Fluticasone Propionate 110 Mcg [Flovent 110 Mcg Inhaler] 2 puff INHALATION RT- BID 11/19/23 Mirtazapine 30 mg PO HS 11/19/23 Tiotropium Br/Olodaterol HCl [Stiolto Respimat Inhal [place]] 1 spray INHALATION DAILY 11/19/23 Controlled Substance Measures - Controlled Substance Measures Is patient prescribed a controlled substance at discharge?: No
[2023-12-04 15:05] VITALS: BP 119/68; PULSE 85; RESP 15; TEMP 98.5
== END | disposition home or self-care (01) ==
LOC: PNWHC3 14:21
PROVIDERS: ATTEND Specialist
DX: M51.36 Other intervertebral disc degeneration, lumbar region (principal); F17.200 Nicotine dependence, unspecified, uncomplicated; Z91.030 Bee allergy status; Z88.3 Allergy status to other anti-infective agents
CPT/HCPCS: 99211

== ENCOUNTER 2023-12-24 11:18 | Day surgery (SDC) | payer OTHER ==
[2023-12-23 09:05] VITALS: BMI 22.4
[2023-12-24 11:51] VITALS: TEMP 98.2
--- NOTE | 2023-12-24 11:51 | P.PCN ---
Date of Procedure: 12/24/23 Operative Findings: Procedure: Bilateral lumbar trigger point injection Preoperative Diagnosis: myofascial pain syndrome Postoperative diagnosis: Same Anesthesia: Local only Surgeon: Stas Palmer MD Indications for procedure: Patient with myofascial pain and palpable trigger points in the above mentioned muscles. The patient consents for an injection after an explanation of risks including but not limited to bleeding and infection, benefits, and alternatives and the patient has signed a consent form indicating understanding of all of them. Description of procedure: After informed consent was obtained the patient's painful area (bilateral lumbar) was sterilely prepped in the usual fashion with ChloraPrep. The trigger points were identified via palpation and the muscles were marked sterilely. Each trigger point was injected with a 25-gauge one and a half inch needle. At that point a solution consisting of 18 ml of 0.5% ropivacaine with 40mg of depomedrol was distributed evenly over the trigger points. The patient's vital signs were stable afterwards and the procedure was tolerated well. Patient was discharged home with follow-up instructions. It was explained to the patient that these injections are not curative but may help with the current symptoms. In order to strengthen the muscles involved, there needs to be dedicated exercise routine to strengthen the muscles and avoid significant muscle spasms..
[2023-12-24] MEDS ORDERED: methylPREDNISolone ACETATE 40 MG/ML 1 ML VIAL ONE (11:53)
[2023-12-24] MEDS ORDERED: ROPIVACAINE 5MG/ML 20ML VIAL ONE (11:53)
[2023-12-24 12:28] VITALS: RESP 20
[2023-12-24 13:05] VITALS: BP 184/88; PULSE 98
== END 2023-12-24 12:20 | disposition home or self-care (01) ==
LOC: ORPAIN 11:18
PROVIDERS: ATTEND Hospitalist
DX: M79.18 Myalgia, other site (principal); Z88.5 Allergy status to narcotic agent
CPT/HCPCS: 20552; J1030; J2795; 20553

== ENCOUNTER → 2024-01-06 | Outpatient (CLI) | payer OTHER ==
--- NOTE | 2024-01-06 11:34 | P.PAINPG ---
Subjective Progress Note Date: 01/06/24 Principal diagnosis: lumbar back pain, radiating to lower extremity Ms. Sanderson is a 53 -year-old pleasant female came to the [facility] pain clinic for follow-up visit for her lumbar back pain. Patient has ongoing pain for many years. she tried multiple intervention procedures including lumbar epidural, trigger point injections with some relief. She had bilateral treat lumbar trigger point injection only 20% relief. As per the patient she wants to try physical therapy she had a prescription from her primary care physician but she is not currently trying physical therapy as her father is sick at home. Patient describes pain is aching, throbbing, constant type of pain. Pain is radiating to lower extremity causing numbness tingling sensation. Patient rated pain levels are5 out of 10 in severity. With the help of medications pain levels are 3-5 out of 10 in severity. Activities making pain worse. Medications, resting, stretching helping in relieving patient's pain. Patient pain some days better than others. Overall activities decreased secondary to pain. Because of the pain sometimes patient is feeling lack of sleep, interest, and energy. Denied any side effects with the medications. Denied any bowel or bladder problems at this time. Patient is not using any walking aids for walking support. Patient denies any suicidal or homicidal ideations intent or plan. Patient denies any auditory or visual hallucinations. Patient denied any red flag symptoms related to pain. 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 Sensation grossly intact Lower extremity: Normal strength, and decreased range of motion secondary to pain Lumbar spine: Paravertebral tenderness: positive Lumbar facet load test : positive Sacroiliac joint tenderness: Positive Thigh thrust test: Positive SI joint compression test: Positive Fabere test: Positive - Constitutional Constitutional Comment(s): 12 point review of symptoms negative except as mentioned in the history of present illness Assessment and Plan Assessment: lumbar spondylosis without myelopathy Lumbar myofascial pain syndrome Chronic pain syndrome Lumbar radiculopathy Sacroiliac joint dysfunction Opiate dependent History of tobacco- smoking cigarettes Plan: #1 Diagnoses, prognosis, and multiple treatment options including but not limited to physical therapy, interventional therapy, adjunct medication therapy, narcotic medication, and surgical options were discussed with the patient. And all questions were answered to the patient's satisfaction. #2 treatment plan agreement : Patient was thoroughly discussed regarding the treatment options, alternatives, and importance of exercises as tolerated. Patient clearly understood. #3 Patient was counseled on importance of regular exercise. Including yomi chi, aerobic exercises as tolerated. Which helps for chronic pain, and overall well- being. Patient also counseled regarding importance of weight control rolling chronic pain, and overall other health issues. By altering diet habits, minimizing sugar intake, and processed foods helps in minimizing Inflammation. Also discussed with the patient regarding intermittent fasting. Patient counseled regarding smoking associated with chronic pain, worsening inflammation, and smoking effects on liver, and medication metabolism. And encouraged to stop smoking. #4 investigations: MAPS- reviewed , urine drug test- not done #5 diagnostic tests: none #6 consultation : continue physical therapy # 7 interventional procedures:bilateral lumbar L4-L5, and L5-S1 medial branch block after physical therapy if conservative therapy not helpful. Procedure, complications, alternatives discussed with the patient. #8 medications none from the pain clinic. Medication side effects, complications, long-term consequences discussed with the patient. Patient recommended to contact the pain clinic if noticed any issues with given medications. #9 morphine milligrams equivalents dose ( MME) per day:0 from the pain clinic # 10 TENS unit's, and percussion massage device #11 disposition: scheduled to follow up with pain clinic in 8 weeks duration. Time with Patient: Less than 30 PQRS Measure Charge Sheet Measure #130: Documentation of Current Meds in Medical Chart: Patient's medications documented in chart Measure #226: Tobacco Use: Screen & Cessation Intervention: Pt screened for tobacco use AND intervention given Measure #111: Pneumonia Vaccination: Pneumococcal vaccine administered or previously received Measure #47: Advance Care Plan: Advance care planning discussed & documented, plan or surrogate given Measure #412: Opioid Treatment Agreement: Documented signed opioid trtmnt agreem nt min once during opioid trtmnt Measure #408: Opioid Therapy Follow-up Evaluation: Patient had f/u eval minimum every 3 months during opioid therapy Measure #317: Preventitive Care & Scrn High Bld Press & F/U: Pre-hypertensive or hypertensive BP documented, pt will f/u with PCP Measure #128: Body Mass Index (BMI) Screening & Follow-up: BMI documented within normal parameters Measure #131: Pain Assessment & Follow-up: Pain positive & plan documented Measure #431: Unhealthy Alcohol Use Preventative Care & Scrn: Patient not identified as an unhealthy alcohol user PQRS Narrative: Smoking Status Current every day smoker Hx Alcohol Use (MH) No Home Medications: Ambulatory Orders Citalopram Hydrobromide [CeleXA] 20 mg PO DAILY 04/07/18 EPINEPHrine (Auto Inject) [Epipen] 0.3 mg IM ONCE PRN #2 syringe 04/07/18 lisinopriL [Prinivil] 10 mg PO QAM 04/07/18 predniSONE [Deltasone] 40 mg PO DAILY #8 tab 04/07/18 DULoxetine HCL [Cymbalta] 60 mg PO QAM 06/20/23 Lurasidone [Latuda] 40 mg PO HS 06/20/23 Morphine Sulfate Ir [MSIR] 15 mg PO QID 06/20/23 Fluticasone Propionate 110 Mcg [Flovent 110 Mcg Inhaler] 2 puff INHALATION RT- BID 11/19/23 Mirtazapine 30 mg PO HS 11/19/23 Tiotropium Br/Olodaterol HCl [Stiolto Respimat Inhal [place]] 1 spray INHALATION DAILY 11/19/23 Controlled Substance Measures - Controlled Substance Measures Is patient prescribed a controlled substance at discharge?: No
[2024-01-06 12:19] VITALS: BP 132/72; PULSE 72; RESP 15; TEMP 98.4
== END ==
LOC: PNWHC3 11:11
PROVIDERS: ATTEND Anesthesiology
DX: G89.4 Chronic pain syndrome (principal); M51.16 Intervertebral disc disorders with radiculopathy, lumbar region; M47.26 Other spondylosis with radiculopathy, lumbar region; F17.210 Nicotine dependence, cigarettes, uncomplicated; F11.20 Opioid dependence, uncomplicated; M53.3 Sacrococcygeal disorders, not elsewhere classified; Z91.030 Bee allergy status; Z88.8 Allergy status to other drugs, medicaments and biological substances
CPT/HCPCS: 99211

== ENCOUNTER → 2024-03-25 | Outpatient (CLI) | payer OTHER ==
--- NOTE | 2024-03-25 09:48 | MM ---
Reason for Exam: Follow-up at short interval from prior study. Last screening mammogram was performed 7 month(s) ago. Patient History: Menarche at age 16. First Full-Term at age 17. Postmenopausal. Risk Values: Margie 5 year model risk: 0.7%. NCI Lifetime model risk: 5.7%. Prior Study Comparison: 01/12/2021 Bilateral Screening Mammogram, [facility]. 02/19/2022 Bilateral MG screening mammo w CAD, [facility]. 08/27/2023 Bilateral MG 3D screening mammo w/cad, [facility]. 09/03/2023 Bilateral MG 3D work up w/cad [facility], [facility]. Tissue Density: The breasts are heterogeneously dense, which may obscure small masses. Findings: Analyzed By CAD. Diffuse bilateral lung microcalcifications which appear to layer on the true lateral view likely reflective of milk of calcium. No suspicious clusters are evident. No evidence for mass or distortion. Overall Assessment: Benign, BI-RAD 2 Management: Screening Mammogram of both breasts in 1 year. . Results were given to the patient verbally at the time of exam. Patient should continue monthly self-breast exams. A clinical breast exam by your physician is recommended on an annual basis. This exam should not preclude additional follow-up of suspicious palpable abnormalities. Note on Margie scores and lifetime risk: 1. A Margie score greater than 3% is considered moderate risk. If this is the case, consider specialist referral to assess eligibility for a risk reducing agent. 2. If overall lifetime risk for the development of breast cancer is 20% or higher, the patient may qualify for future screening with alternating mammogram and breast MRI. Electronically signed and approved by: German Piña M.D. Radiologis
== END | disposition home or self-care (01) ==
LOC: RADMAMWWP 09:22
PROVIDERS: ATTEND Family Medicine
DX: Z12.31 Encounter for screening mammogram for malignant neoplasm of breast (principal); R92.8 Other abnormal and inconclusive findings on diagnostic imaging of breast; R92.333 Mammographic heterogeneous density, bilateral breasts; Z78.0 Asymptomatic menopausal state
CPT/HCPCS: 77066; G0279; 77062

== ENCOUNTER 2024-07-07 11:09 | Day surgery (SDC) | payer OTHER ==
[2024-07-07 11:42] VITALS: TEMP 97.2
[2024-07-07] MEDS: IV FLUID CONTINUATION 1,000 ML IV ONE ×2 (11:47→12:40)
[2024-07-07] MEDS: LACTATED RINGERS 1,000 ML IV SCH (11:47)
[2024-07-07] MEDS ORDERED: ROPIVACAINE 5MG/ML 20ML VIAL ONE (12:22)
[2024-07-07] MEDS ORDERED: MIDAZOLAM 2 MG/2 ML VIAL ONE (12:22)
[2024-07-07] MEDS ORDERED: fentaNYL (PF) 50 MCG/ML 2 ML AMP ONE (12:22)
--- NOTE | 2024-07-07 12:37 | P.PCN ---
Date of Procedure: 07/07/24 Procedure(s) Performed: PREOPERATIVE DIAGNOSIS : 1- Lumbar spondylosis with Facet Arthropathy with out myelopathy . 2- Lumber degenerative disc disease POSTOPERATIVE DIAGNOSIS: 1- Lumbar spondylosis with Facet Arthropathy without myelopathy . 2- Lumber degenerative disc disease PROCEDURE: Diagnostic bilateral L3 , L4 , and L5 medial branch block under fluoroscopy guidance(fluoroscopy images available in the radiology Department ) ( To target the facet joint between Bilateral L4-5 , and L5- S1 )# 1st ANESTHESIA: moderate sedation with intravenous Versed 2 mg and Fentanyl 100 mcg. (Sedation started 12:22 , end 12:32 ) EBL: Minimal COMPLICATION: None PROCEDURE INDICATION: Chronic low back pain secondary to Facet arthropathy unresponsive to conservative treatment. PROCEDURE DESCRIPTION: the patient was seen and identified in the preop holding area , risks and benefits and possible complications of the procedure and alternative were discussed with the patient, and the patient agreed to proceed with the procedure and signed the consent and vital signs monitored during the procedure and fluoroscopy was used to maximize the benefit and accuracy of the needle placement, and sedation was given to decrease patient anxiety, patient was taken to the procedure room and placed in prone position vital signs monitored in the back prepped with chlorhexidine X3 then under strict sterile technique using a right oblique fluoroscopy ,the junction of the transverse process and the superior articulating process of the right L3 , L4 , and L5 vertebra which corresponding to the fluoroscopy image of the eye of the Max dog on the block side for the medial branches and subsequently , after local infiltration of skin and subcu tissuies with Ropivacaine 0.5 % , one mL at each level ,then 22-gauge Quincke-type needles , 3 needle was used , each one of them placed at the junction of the base of the transverse process and the superior articular process at the appropriate level, and the needle was advanced until the periosteum contacted, needle placement confirmed with AP oblique and lateral view and after appropriate needle placement confirmed, and after negative aspiration for heme and CSF and there was no paresthesia 1-1/2 mL of Ropivacaine used , then half mL injected at each level after negative aspiration the needle subsequently removed and the same procedure repeated for the left side at left side at L3 , L4 and L5 levels. At the end of the procedure and the needles removed and a bandage applied after the skin was cleaned the cleaning solution patient taken to recovery room in stable condition and monitors in the recovery room for 20-30 minutes and discharged home in stable condition after discharge criteria met and patient will follow up with the pain clinic in 2-4 weeks
[2024-07-07 13:03] VITALS: RESP 16
[2024-07-07 13:06] VITALS: BP 134/69; PULSE 62
--- NOTE | 2024-07-07 13:43 | FL ---
Fluoroscopy History: SANJAY LUM FB pain management sanjay lum fb fl time 9.7 secs dap 0.1711 [facility], , 07/07/2024 1:40 PM
== END 2024-07-07 13:16 | disposition home or self-care (01) ==
LOC: ORPAIN 11:09
PROVIDERS: ATTEND Specialist
DX: M47.816 Spondylosis without myelopathy or radiculopathy, lumbar region
CPT/HCPCS: 99152

== ENCOUNTER → 2024-08-05 | Outpatient (CLI) | payer OTHER ==
[2024-08-05 12:37] VITALS: BP 164/84; PULSE 74; RESP 20; TEMP 96.5
--- NOTE | 2024-08-05 15:17 | P.PAINPG ---
PQRS Measure Charge Sheet Comment: HISTORY OF PRESENT ILLNESS: A 53 yr old female presents today w severe and chronic LBP > 5 yrs secondary to radiculopathy, spondylosis and facet arthropathy without myelopathy for evaluation s/p BL MBB L4-L5/ L5-S1 #1. Pt states she experienced 90 % pain relief x 2 wks s/p procedure. Pt states pain level is provoked at 5-6 /10 in intensity, intermittent, localized in the lumbar spine, predominantly axial, sharp in character without shooting pain. Pain is provoked by over activity. Pain is alleviated by PT x 6 wks which ended May 2024, physician guided stretches daily since May 2024, heat, medications, topical, chiropractic treatments in 2020, repositioning and rest. Interventional procedures include ALBA L3-L4 x2, BL MBB L3-L5 x1 Medications include MS ER, Tyl, Ibu REVIEW OF ORGAN SYSTEMS: CONSTITUTIONAL: No fevers or chills. No recent weight loss. NEUROLOGICAL: + numbness and tingling along the distal extremities. No seizure disorders or headaches. MUSCULOSKELETAL: + pain PSYCHIATRIC: Denies current depression or suicidal thoughts. Physical Examinations : Constitutional : Cooperative , not in acute distress . Neurologic : Cranial nerve II to XII intact. No focal neurological deficits. Psychiatric : alert & oriented x 3. Matching mood & appropriate affect. Judgment & insight intact. Musculoskeletal : Cervical Spine Motor strength in the deltoid and biceps: Normal right side. Normal Left side Motor strength biceps and the wrist extensors: Normal right side . Normal left side Motor strength in the triceps muscle: Normal right side. Normal left side Deep tendon reflexes: Normal at the biceps. Normal at Brachioradialis. Normal at triceps Vertebral body tenderness to deep palpation over Cervical facet loading test: positive bilaterally Spurling test: positive bilaterally Neck distraction test: positive bilaterally Minerva sign: positive bilaterally Lumbar spine Motor strength lower extremities ,thigh and legs 5/5 Right side , 5/5 Left side Deep tendon reflexes : Normal Knee Jerk. Normal Ankle Jerk Vertebral body tenderness over L3 Iniguez Test positive over Taut bands w twitch response over BL L2-S1 R> L Range of motion of the lumbar spine Lumbar facet Loading Test: positive Right / positive Left L4-L5/ L5-S1 Flexion 30 degrees, extension 10 degrees Straight Leg Raise test: Left/ Right positive at degree Starr test: positive right / positive left. Severe tenderness over the Sacroiliac joint on the Right / Left sides Gaenslen test: positive bilaterally Seated flexion test: positive bilaterally. Sacral spine : Severe tenderness over the Sacroiliac joint: right side / left side Range of motion: Flexion of the lumbar spine <60 degrees Range of motion: Extension of the lumbar spine <20 degrees Gaenslen's Test positive Albert's Test positive Starr test: positive right side / left side Thigh Thrust Test Sacral Thrust Test Imaging: MRI non contrast of the lumbar spine from 02/09/22 reviewed Assessment/ Plan : Lumbar radiculopathy Recommendation of VANCE MCFADDEN L4-L5/ L5-S1 #2. Risks, benefits of procedure discussed and patient verbalized understanding. Protocol for discontinuation/continuation of medications surrounding procedure discussed. Minimal anesthesia including Fentanyl and Versed if clinically indicated. Pt is not a candidate for narcotic medication use because she has stated at multiple visits she will not quit cannabis and will continue to come to this clinic for injections only. Pt dissatisfied that this clinic asks pt discontinue cannabis while having a narcotic agreement in place, as pt stated that has not been the case when receiving Morphine Sulfate from Dr Salazar. Per records, she however tested negative on medications prescribed on [address] Salazar. All questions answered. I have spent greater than 30 minutes on patient care today. Dr Hurst was available by phone for the evaluation of this patient. The time was used to review the medical records including relevant urine studies and Prescription history (MAPs), review of the available imaging, evaluation and examination of the patient, coordination of care with the medical staff and if applicable referring physicians, as well as creation of the medical record PQRS Narrative: Smoking Status Current every day smoker Hx Alcohol Use (MH) No Home Medications: Ambulatory Orders EPINEPHrine (Auto Inject) [Epipen] 0.3 mg IM ONCE PRN #2 syringe 04/07/18 lisinopriL [Prinivil] 10 mg PO QAM 04/07/18 DULoxetine HCL [Cymbalta] 60 mg PO BID 06/20/23 Lurasidone [Latuda] 40 mg PO HS 06/20/23 Morphine Sulfate Ir [MSIR] 10 mg PO QID 06/20/23 Fluticasone Propionate 110 Mcg [Flovent 110 Mcg Inhaler] 2 puff INHALATION RT- BID 11/19/23 Mirtazapine 30 mg PO HS 11/19/23 Tiotropium Br/Olodaterol HCl [Stiolto Respimat Inhal [place]] 1 spray INHALATION DAILY 11/19/23 Atorvastatin [Lipitor] 40 mg PO DAILY 07/02/24 Tm Daily Rakesh 1 dose PO DAILY 07/02/24 hydrOXYzine HCL [Hydroxyzine HCl] 25 mg PO TID 07/02/24 Controlled Substance Measures - Controlled Substance Measures Is patient prescribed a controlled substance at discharge?: No
== END ==
LOC: PNWHC3 12:05
PROVIDERS: ATTEND Specialist
DX: M54.16 Radiculopathy, lumbar region (principal); F17.200 Nicotine dependence, unspecified, uncomplicated; Z91.030 Bee allergy status; Z88.8 Allergy status to other drugs, medicaments and biological substances
CPT/HCPCS: 99211

== ENCOUNTER 2024-08-14 09:10 | Day surgery (SDC) | payer OTHER ==
[2024-08-12 09:56] VITALS: BMI 21.4
[2024-08-14 09:37] VITALS: TEMP 97.3
[2024-08-14] MEDS: IV FLUID CONTINUATION 1,000 ML IV ONE ×2 (09:46→10:41)
[2024-08-14] MEDS: LACTATED RINGERS 1,000 ML IV SCH (09:46)
[2024-08-14] MEDS ORDERED: ROPIVACAINE 5MG/ML 20ML VIAL ONE (10:26)
[2024-08-14] MEDS ORDERED: MIDAZOLAM 2 MG/2 ML VIAL ONE (10:26)
[2024-08-14] MEDS ORDERED: fentaNYL (PF) 50 MCG/ML 2 ML AMP ONE (10:26)
--- NOTE | 2024-08-14 10:38 | P.PCN ---
Date of Procedure: 08/14/24 Procedure(s) Performed: PREOPERATIVE DIAGNOSIS : 1- Lumbar spondylosis with Facet Arthropathy without myelopathy . 2- Lumber degenerative disc disease POSTOPERATIVE DIAGNOSIS: 1- Lumbar spondylosis with Facet Arthropathy without myelopathy . 2- Lumber degenerative disc disease PROCEDURE: Diagnostic bilateral L3 , L4 , and L5 medial branch block under fluoroscopy guidance(fluoroscopy images available in the radiology Department ) ( To target the facet joint between Bilateral L4-5 , and L5- S1 )# 2nd ANESTHESIA: moderate sedation with intravenous Versed 2 mg and Fentanyl 100 mcg. (Sedation started 10:26 , end 10:36 ) EBL: Minimal COMPLICATION: None PROCEDURE INDICATION: Chronic low back pain secondary to Facet arthropathy unresponsive to conservative treatment. PROCEDURE DESCRIPTION: the patient was seen and identified in the preop holding area , risks and benefits and possible complications of the procedure and alternative were discussed with the patient, and the patient agreed to proceed with the procedure and signed the consent and vital signs monitored during the procedure and fluoroscopy was used to maximize the benefit and accuracy of the needle placement, and sedation was given to decrease patient anxiety, patient was taken to the procedure room and placed in prone position vital signs monitored in the back prepped with chlorhexidine X3 then under strict sterile technique using a right oblique fluoroscopy ,the junction of the transverse process and the superior articulating process of the right L3 , L4 , and L5 vertebra which corresponding to the fluoroscopy image of the eye of the Max dog on the block side for the medial branches and subsequently , after local infiltration of skin and subcu tissuies with Ropivacaine 0.5 % , one mL at each level ,then 22-gauge Quincke-type needles , 3 needle was used , each one of them placed at the junction of the base of the transverse process and the superior articular process at the appropriate level, and the needle was advanced until the periosteum contacted, needle placement confirmed with AP oblique and lateral view and after appropriate needle placement confirmed, and after negative aspiration for heme and CSF and there was no paresthesia 1-1/2 mL of Ropivacaine used , then half mL injected at each level after negative aspiration the needle subsequently removed and the same procedure repeated for the left side at left side at L3 , L4 and L5 levels. At the end of the procedure and the needles removed and a bandage applied after the skin was cleaned the cleaning solution patient taken to recovery room in stable condition and monitors in the recovery room for 20-30 minutes and discharged home in stable condition after discharge criteria met and patient will follow up with the pain clinic in 2-4 weeks
[2024-08-14 10:43] VITALS: RESP 16
[2024-08-14 10:55] VITALS: BP 123/78; PULSE 77
--- NOTE | 2024-08-14 10:57 | FL ---
EXAMINATION TYPE: FL guided pain mgmt statistic DATE OF EXAM: 08/14/2024 10:45 AM COMPARISON: Pre Operative Images if available both CT/MRI or plain film CLINICAL INDICATION: Female, 53 years old with history of PAIN; TECHNIQUE: FL guided pain mgmt statistic, multiple fluoroscopic images provided for procedure. Total fluoroscopy time: 6.2 seconds Total submitted images to PACS: 4 DAP: 0.17481 mGym2 Gycm2 uGym2 cGycm2 or equivalent. FINDINGS: Fluoroscopic images during injection for pain management demonstrate multilevel degeneration changes throughout the spine. No evidence for fracture. No acute process identified. IMPRESSION: 1. No evidence for intraoperative complication. 2. Please see the operative/procedural note for further details. [facility], , 08/14/2024 10:55 AM
== END 2024-08-14 11:06 | disposition home or self-care (01) ==
LOC: ORPAIN 09:10
PROVIDERS: ATTEND Specialist
DX: M47.816 Spondylosis without myelopathy or radiculopathy, lumbar region (principal); M51.369 Other intervertebral disc degeneration, lumbar region without mention of lumbar back pain or lower extremity pain
CPT/HCPCS: 64493; 64494; J2250; J3010; J2795; 99152

== ENCOUNTER → 2024-09-03 | Outpatient (CLI) | payer OTHER ==
[2024-09-03 10:35] VITALS: BP 119/63; PULSE 87; RESP 16
--- NOTE | 2024-09-03 15:22 | P.PAINPG ---
Objective - Vital Signs Vital signs: Intake & Output 09/02/24 09/03/24 09/03/24 18:59 06:59 18:59 Weight 54.431 kg PQRS Measure Charge Sheet Comment: HISTORY OF PRESENT ILLNESS: A 53 yr old female presents today w severe and chronic LBP > 5 yrs secondary to radiculopathy, spondylosis and facet arthropathy without myelopathy for evaluation s/p BL MBB L4-L5/ L5-S1 #2. Pt states she experienced 100 % pain relief x 3 days s/p procedure. Pt states pain level is provoked at 6 /10 in intensity, intermittent, localized in the lumbar spine, predominantly axial, sharp in character without shooting pain. Pain is provoked by over activity. Pain is alleviated by PT x 6 wks which ended May 2024, physician guided stretches daily since May 2024, heat, medications, topical, chiropractic treatments in 2020, repositioning and rest. Interventional procedures include ALBA L3-L4 x2, BL MBB L3-L5 x2 Medications include MS ER, Tyl, Ibu REVIEW OF ORGAN SYSTEMS: CONSTITUTIONAL: No fevers or chills. No recent weight loss. NEUROLOGICAL: + numbness and tingling along the distal extremities. No seizure disorders or headaches. MUSCULOSKELETAL: + pain PSYCHIATRIC: Denies current depression or suicidal thoughts. Physical Examinations : Constitutional : Cooperative , not in acute distress . Neurologic : Cranial nerve II to XII intact. No focal neurological deficits. Psychiatric : alert & oriented x 3. Matching mood & appropriate affect. Judgment & insight intact. Musculoskeletal : Cervical Spine Motor strength in the deltoid and biceps: Normal right side. Normal Left side Motor strength biceps and the wrist extensors: Normal right side . Normal left side Motor strength in the triceps muscle: Normal right side. Normal left side Deep tendon reflexes: Normal at the biceps. Normal at Brachioradialis. Normal at triceps Vertebral body tenderness to deep palpation over Cervical facet loading test: positive bilaterally Spurling test: positive bilaterally Neck distraction test: positive bilaterally Minerva sign: positive bilaterally Lumbar spine Motor strength lower extremities ,thigh and legs 5/5 Right side , 5/5 Left side Deep tendon reflexes : Normal Knee Jerk. Normal Ankle Jerk Vertebral body tenderness over L3 Iniguez Test positive over Taut bands w twitch response over BL L2-S1 R> L Range of motion of the lumbar spine Lumbar facet Loading Test: positive Right / positive Left L4-L5/ L5-S1 Flexion 30 degrees, extension 10 degrees Straight Leg Raise test: Left/ Right positive at degree Starr test: positive right / positive left. Severe tenderness over the Sacroiliac joint on the Right / Left sides Gaenslen test: positive bilaterally Seated flexion test: positive bilaterally. Sacral spine : Severe tenderness over the Sacroiliac joint: right side / left side Range of motion: Flexion of the lumbar spine <60 degrees Range of motion: Extension of the lumbar spine <20 degrees Gaenslen's Test positive Albert's Test positive Starr test: positive right side / left side Thigh Thrust Test Sacral Thrust Test Imaging: MRI non contrast of the lumbar spine from 02/09/22 reviewed Assessment/ Plan : Lumbar radiculopathy Recommendation of BL RFA L4-L5, L5-S1. Risks, benefits of procedure discussed and patient verbalized understanding. Protocol for discontinuation/continuation of medications surrounding procedure discussed. Minimal anesthesia including Fentanyl and Versed if clinically indicated. Pt is not a candidate for narcotic medication use because she has stated at multiple visits she will not quit cannabis and will continue to come to this clinic for injections only. Pt dissatisfied that this clinic asks pt discontinue cannabis while having a narcotic agreement in place, as pt stated that has not been the case when receiving Morphine Sulfate from Dr Salazar. Per records, she however tested negative on medications prescribed on [address] Salazar. All questions answered. I have spent greater than 30 minutes on patient care today. Dr Hurst was available by phone for the evaluation of this patient. The time was used to review the medical records including relevant urine studies and Prescription history (MAPs), review of the available imaging, evaluation and examination of the patient, coordination of care with the medical staff and if applicable referring physicians, as well as creation of the medical record PQRS Narrative: Smoking Status Current every day smoker Narcotic Agreement Date Signed 08/05/24 Hx Alcohol Use (MH) No Home Medications: Ambulatory Orders EPINEPHrine (Auto Inject) [Epipen] 0.3 mg IM ONCE PRN #2 syringe 04/07/18 lisinopriL [Prinivil] 10 mg PO QAM 04/07/18 DULoxetine HCL [Cymbalta] 60 mg PO BID 06/20/23 Lurasidone [Latuda] 40 mg PO HS 06/20/23 Morphine Sulfate Ir [MSIR] 10 mg PO QID 06/20/23 Fluticasone Propionate 110 Mcg [Flovent 110 Mcg Inhaler] 2 puff INHALATION RT- BID 11/19/23 Mirtazapine 30 mg PO HS 11/19/23 Tiotropium Br/Olodaterol HCl [Stiolto Respimat Inhal [place]] 1 spray INHALATION DAILY 11/19/23 Atorvastatin [Lipitor] 40 mg PO DAILY 07/02/24 Tm Daily Rakesh 1 dose PO DAILY 07/02/24 hydrOXYzine HCL [Hydroxyzine HCl] 25 mg PO TID 07/02/24 Controlled Substance Measures - Controlled Substance Measures Is patient prescribed a controlled substance at discharge?: No
== END ==
LOC: PNWHC3 10:12
PROVIDERS: ATTEND Specialist
DX: M54.16 Radiculopathy, lumbar region (principal); F17.200 Nicotine dependence, unspecified, uncomplicated; Z91.030 Bee allergy status; Z88.8 Allergy status to other drugs, medicaments and biological substances
CPT/HCPCS: 99211

== ENCOUNTER 2024-09-25 09:10 | Day surgery (SDC) | payer OTHER ==
[2024-09-25] MEDS: IV FLUID CONTINUATION 1,000 ML IV ONE ×2 (10:11→11:38)
[2024-09-25] MEDS: LACTATED RINGERS 1,000 ML IV SCH (10:12)
[2024-09-25] MEDS ORDERED: fentaNYL (PF) 50 MCG/ML 2 ML AMP ONE (11:06)
[2024-09-25] MEDS ORDERED: ROPIVACAINE 5MG/ML 20ML VIAL ONE (11:06)
[2024-09-25] MEDS ORDERED: methylPREDNISolone ACETATE 40 MG/ML 1 ML VIAL ONE (11:06)
[2024-09-25] MEDS ORDERED: MIDAZOLAM 2 MG/2 ML VIAL ONE (11:06)
--- NOTE | 2024-09-25 11:34 | P.PCN ---
Date of Procedure: 09/25/24 Procedure(s) Performed: PREOPERATIVE DIAGNOSIS: 1-Lumbar Spondylosis with Facet Arthropathy without myelopathy. 2- Lumber degenerative disc disease. POSTOPERATIVE DIAGNOSIS: 1- Lumbar Spondylosis with Facet Arthropathy without myelopathy. 2- Lumber degenerative disc disease. PROCEDURES : Bilateral Radiofrequency thermocoagulation, L3 , L4 , and L5 medial branch, with fluoroscopic guidance (fluoroscopy images available in the radiology department) ( to denervate the facet joint at bilateral L4-5 ,and L5-S1 levels ). ANESTHESIA:Moderate sedation with intravenous versed 2 mg and fentaneyl 200 mcg, and local infiltration with Ropivacaine 0.5 % . Sedation started at 1106, ended at 1128 EBL: Minimal PROCEDURE INDICATION: The patient with low back pain secondary to lumbar facet arthropathy who had more than 50% relief of her pain with previous diagnostic lumbar medial branch block with bupivacaine. PROCEDURE DESCRIPTION / TECHNIQUE: The patient was seen and identified in the preoperative area. Risks, benefits, complications, including but not limited to risk of infection ,bleeding , allergic reactions to the medications and no complete pain releife , and alternatives were discussed with the patient, the patient agreed to proceed with the procedure and signed the consent. IV was started. Vital signs remained stable throughout the procedure. Patient was taken to the OR and time out was completed. The patient was placed in the prone position on the procedure table. The lumber area was prepped and draped in the usual sterile fashion. . Vital signs were closely monitored during the procedure .IV sedation was used during the procedure to decrease patients anxiety. Using AP and then oblique fluoroscopy, the ``eye of the Max dog corresponding to the connection between the superior and transverse articular processes of right L3, L4, and L5 were identified, marked, and localized with 1% lidocaine. Subsequently, a 18 guage (VENOM )100-mm radiofrequency cannula with a 10-mm active tip was advanced guided by fluoroscopy to each of the``eyes of the Max dog at right L3, L4, and L5. Each site then underwent sensory testing at 50 Hz and 0 to 1 volt and motor testing at 2.5 Hz and 0 to 3 volt with local stimulation, but no radicular symptoms down the legs. Thereafter each sites underwent radiofrequency thermocoagulation at 80 degrees celsius for 90 seconds after injecting 0.5 ml of PF Ropivacaine 1ml, then after the thermocoagulation done , 1 ml of the block solution containing Depo-Medrol 20 mg and 3 ml of Ropivacaine 0.5% was injected at the right L3 , L4 , and L5 , levels after negative aspiration of CSF and blood and with no paresthesias. Cannulas were retracted while injecting lidocaine 1% until the needle is out. The same procedure was repeated at the level of Left L3, L4, and L5 levels. At the end of the procedure, the skin was cleansed and bandages were applied. COMPLICATIONS: No acute complications. DISPOSITION / PLANS: The patient was placed in a supine position and transferre d to the recovery area in a stable condition for observation and was discharged from the recovery room after meeting discharge criteria. Home discharge instructions given to the patient by the staff. The patient was reexamined prior to discharge. The patient will schedule a follow up in the clinic in 2-4 weeks.
[2024-09-25 12:06] VITALS: BP 142/74; PULSE 72; RESP 18
--- NOTE | 2024-09-25 12:22 | FL ---
EXAMINATION TYPE: FL guided pain mgmt statistic DATE OF EXAM: 09/25/2024 FLUOROSCOPY Wali Lumbar Rad Freq 37sec fluoro time .[id number] Riojas 6 images are submitted. [facility], , 09/25/2024 12:19 PM
== END 2024-09-25 12:19 ==
LOC: ORPAIN 09:10
PROVIDERS: ATTEND Specialist
DX: M47.816 Spondylosis without myelopathy or radiculopathy, lumbar region (principal); Z91.030 Bee allergy status; Z88.8 Allergy status to other drugs, medicaments and biological substances
CPT/HCPCS: 64635; 64636 ×2; J2250; J3010; J2795; J1010; 99152

== ENCOUNTER 2024-12-08 12:28 | Day surgery (SDC) | payer OTHER ==
[2024-12-04 11:56] VITALS: BMI 20.6
[2024-12-08 12:55] VITALS: TEMP 98
[2024-12-08] MEDS ORDERED: LIDOCAINE 1% INJ 10MG/ML (20 ML MDV) ONE (13:45)
[2024-12-08] MEDS ORDERED: methylPREDNISolone ACETATE 40 MG/ML 1 ML VIAL ONE (13:45)
[2024-12-08] MEDS ORDERED: ROPIVACAINE 5MG/ML 20ML VIAL ONE (13:45)
--- NOTE | 2024-12-08 13:59 | P.PCN ---
Description of Procedure: Preprocedure diagnosis. Bilateral iliolumbar ligament pain. Postprocedure diagnosis. As above. Procedure done. BILATERAL iliolumbar ligament injection with local anesthetics and steroid under fluoroscopic guidance. Anesthesia. Local infiltration of local anesthetics. Blood loss. None. Indication. Discussed the procedure and possible complications which may include infection bleeding nerve damage paralyzes aggravation of pain all of which could be permanent. Patient understands and QUESTIONS were answered. Procedure note. After getting consent patient was taken to OR in prone position. Back prepped with chlorhexidine and draped in sterile fashion. After injecting 5 mL of plain 1% lidocaine subcutaneously a 22-gauge spinal needle was introduced under tunnel vision of the fluoroscope on the RIGHT iliolumbar ligament area just below the right L5 transverse process. The needle position confirmation by AP and crosstable lateral view of the fluoroscope, after negative aspiration, 1.5 mL solution was injected which consists of 1 mL of 40 mg Depo-Medrol mixed with 0.5 ml of 0.5% Ropivacaine. In exactly the same way LEFT iliolumbar ligament injected with same amount of solution. [place] were taken out. Disposition. Patient tolerated the procedure well. No complication. Discharged home in stable condition.
--- NOTE | 2024-12-08 14:08 | FL ---
EXAMINATION TYPE: FL guided pain mgmt statistic DATE OF EXAM: 12/08/2024 1:58 PM COMPARISON: Pre Operative Images if available both CT/MRI or plain film CLINICAL INDICATION: Female, 53 years old with history of Inj Sng Tendon; TECHNIQUE: FL guided pain mgmt statistic, multiple fluoroscopic images provided for procedure. DAP: 0.31434 mGym2 Gycm2 uGym2 cGycm2 or equivalent. FINDINGS: Fluoroscopic images during injection for pain management demonstrate multilevel degeneration changes throughout the spine. No evidence for fracture. No acute process identified. IMPRESSION: 1. No evidence for intraoperative complication. 2. Please see the operative/procedural note for further details. [facility], , 12/08/2024 2:06 PM
[2024-12-08 14:18] VITALS: BP 184/94; PULSE 91; RESP 17
== END 2024-12-08 14:22 | disposition home or self-care (01) ==
LOC: ORPAIN 12:28
PROVIDERS: ATTEND Pain Medicine Interventional Pain Medicine
DX: M79.18 Myalgia, other site (principal); Z91.030 Bee allergy status; Z88.5 Allergy status to narcotic agent
CPT/HCPCS: 20550; J2003; J2795; J1010

== ENCOUNTER → 2024-12-24 | Outpatient (CLI) | payer OTHER ==
--- NOTE | 2024-12-24 12:48 | CT ---
EXAMINATION TYPE: CT abdomen pelvis w con DATE OF EXAM: 12/24/2024 COMPARISON: NONE CLINICAL INDICATION: Female, 54 years old with history of R31.9 HEMATURIA R19.01 RIGHT UPPER QUADRANT ABDOMINAL PAIN, , TECHNIQUE: CT scan of the abdomen and pelvis is performed with IV Contrast, patient injected with 100 mL of Isov ue 300., (none if empty) Oral contrast used: (none if empty) CT DLP: 612 mGycm, Automated exposure control for dose reduction was used. FINDINGS: LUNG BASES: No significant abnormality is appreciated. LIVER/GB: Liver is heterogeneously hypodense. Liver is normal in size. Some lobulation of the periphe ral contours identified. There is occasional subcentimeter low dense lesion in the right hepatic lobe that is too small to further characterize. Perhaps mild wall thickening of the gallbladder wall and mucosal enhancement. There is dependent density consistent with sludge. Mild extrahepatic biliary dil atation up to 8 mm coronal images 39. PANCREAS: No pancreatic ductal dilatation. SPLEEN: No significant abnormality is seen. ADRENALS: No significant abnormality is seen. KIDNEYS: Asymmetric diminished size/atrophy of the right kidney. There are 2 right renal calculi clark suring up to 6 mm in size. No hydronephrosis seen bilaterally. BOWEL: Oral contrast has not reached the distal ileum levels making evaluation for small slightly sub optimal. No abnormal small or large bowel dilatation. Normal-appearing appendix in the cecum. Mild to moderate wall thickening in the sigmoid colon of the pelvis along with the transverse colon. Diverti cula are present. UTERUS/ADNEXA: Anteverted uterus projects to the right of midline. LYMPH NODES: No greater than 1cm abdominal or pelvic lymph nodes are appreciated. OSSEOUS STRUCTURES: No significant abnormality is seen. OTHER:. Severe Calcified plaque of the aorta extends into the branch vessels. 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 Severe calcified plaque or stenosis origin right renal artery. There is signi ficant stenosis in the distal abdominal aorta just before the bifurcation. IMPRESSION: 1. There is diffuse fatty infiltration and/or hepatocellular disease identified. Size of liver is no rmal. 2. Gallbladder sludge. Acute cholecystitis cannot be excluded on CT. Correlate clinically. There is m ild extrahepatic biliary ductal dilatation up to 8 mm. Consider MRCP/ERCP follow-up. 3. Severe calcified plaque of the aorta extending to iliac branch vessels. Significant stenosis right renal artery likely causes the end-stage atrophy of the right kidney. Significant stenosis in the di stal abdominal aorta is present. Correlate for lower extremity peripheral arterial disease. 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 4. No bowel obstruction. Cannot exclude multifocal uncomplicated acute colitis. Differential includes infectious, inflammatory, and ischemic etiologies. [facility], , 12/24/2024 12:46 PM
== END | disposition home or self-care (01) ==
LOC: RADCTMAIN 10:12
PROVIDERS: ATTEND Family Medicine
DX: K82.8 Other specified diseases of gallbladder (principal); I67.82 Cerebral ischemia; K83.8 Other specified diseases of biliary tract; I70.1 Atherosclerosis of renal artery; N26.1 Atrophy of kidney (terminal); R31.9 Hematuria, unspecified
CPT/HCPCS: 74177; Q9967

== ENCOUNTER → 2025-03-11 | Outpatient (CLI) | payer OTHER ==
[2025-03-11 19:27] LABS: Basophils # (A) 0.07 X 10*3/uL (0.00-0.10); Basophils % (A) 1.1 %; Eosinophils # (A) 0.21 X 10*3/uL (0.04-0.35); Eosinophils % (A) 3.3 %; HCT 43.4 % (37.2-46.3); HGB 14.6 g/dL (12.0-15.0); Lymphocytes # (A) 1.96 X 10*3/uL (0.90-5.00); Lymphocytes % (A) 30.9 %; MCH 32.7 pg (27.0-32.0); MCHC 33.6 g/dL (32.0-37.0); MCV 97.1 FL (80.0-97.0); Mean Platelet Volume 9.7 FL (9.5-12.2); Monocytes # (A) 0.53 X 10*3/uL (0.20-1.00); Monocytes % (A) 8.3 %; NRBC Per 100 WBC 0 X 10*3/uL (0.00-0.01); Neutrophils # (A) 3.53 X 10*3/uL (1.80-7.70); Neutrophils % (A) 55.6 %; Platelet Count 206 X 10*3/uL (140-440); RBC 4.47 X 10*6/uL (4.10-5.20); RDW 14.8 % (11.5-14.5); WBC 6.35 X 10*3/uL (4.50-10.00)
[2025-03-11 22:27] LABS: ALT 19 U/L (8-44); AST 28 U/L (13-35); Albumin 4.4 g/dL (3.8-4.9); Albumin/Globulin Ratio 1.47 Ratio (1.60-3.17); Alkaline Phosphatase 128 U/L (41-126); BUN/Creat Ratio 11.29 Ratio (12.00-20.00); Blood Urea Nitrogen 7.9 mg/dL (9.0-27.0); Carbon Dioxide 21.2 mmol/L (21.6-31.8); Chloride 102 mmol/L (96-109); Glucose 90 mg/dL (70-110); Potassium 3.5 mmol/L (3.5-5.5); Sodium 138 mmol/L (135-145); Total Bilirubin 0.4 mg/dL (0.3-1.2); Total Protein 7.4 g/dL (6.2-8.2)
== END | disposition home or self-care (01) ==
LOC: LABWHC1 12:00
PROVIDERS: ATTEND Internal Medicine Gastroenterology
DX: K70.0 Alcoholic fatty liver (principal)
CPT/HCPCS: 36415; 80053; 81596; 82105; 85025